=== PATIENT | female | born 1975 | race Caucasian/White ===

== ENCOUNTER 2018-03-25 16:32 | Emergency (ER) | payer MEDICAID, SELFPAY ==
[2018-03-25 16:34] VITALS: BP 164/81; PULSE 85; RESP 17; TEMP 37.6; O2SAT 98; BMI 31.4
[2018-03-25] MEDS: Ketorolac 30 MG/ML Syringe IV (17:04)
[2018-03-25] MEDS: 0.9% Normal Saline 1,000 ML 250 ML IV (17:04)
[2018-03-25 17:49] LABS: Bacteria 0 SEEN /hpf (None Seen); Mucous, Urine 0 SEEN /hpf (<or=2+); White Blood Cells 0 SEEN /hpf (0-5)
[2018-03-25 17:56] LABS: Color, Urine Yellow (Yellow); Glucose, Dipstick Normal (Normal); Ketone-Dipstick Negative (Negative); Leukocyte Esterase-Dipstick 25 /ul (Negative); Nitrite-Dipstick Negative (Negative); Occult Blood-Urine 250 /ul (Negative); Protein-Dipstick 15 mg/dl (Negative); Urine Bilirubin Dipstick Negative (Negative); Urine Clarity Clear (Clear); Urine Urobilinogen Normal (Normal)
[2018-03-25 18:50] LABS: Red Blood Cells-Urine 0-5 SEEN /hpf (0-5); Squamous Epithelial Cells - UA 0-5 SEEN /hpf (5-10)
--- NOTE | 2018-03-25 18:55 | ED.DCSUM_ITS ---
- ER Visit Summary Date of Service: 03/25/18 Chief Complaint: Right flank pain History of Present Illness: The patient is a [address] Swann. She complains of right flank pain that began abruptly yesterday at 11 PM. Sharp pains 1010 at worst 510 currently. Is worsened by nothing relieved by nothing. She denies any nausea, vomiting, or diarrhea. Last bowel was yesterday. She had no melena or hematochezia. No dysuria frequency. She does not know about hematuria because she is currently on her menses. She reports a similar to when she has had kidney stones in the past. No fever or chills per Physical Examination: Vitals: Stable. Afebrile. General: Well-nourished and well-developed. Head: Normocephalic atraumatic. Neck: Supple, no lymphadenopathy. No JVD. Nontender. Cardiovascular: Regular rate and rhythm. No murmurs. Respiratory: No respiratory distress. Clear to auscultation bilaterally. Abdominal: Soft, nontender, nondistended, normal bowel sounds. No guarding, rebound, or peritoneal signs. Back: Mild right CVA tenderness. Extremities: Nontender, no edema. Skin: Normal color, no rash. Neurologic: Alert and oriented ?3. Cranial nerves II through XII are intact. Normal strength and sensation. Psych: Normal affect. Test Results: Urine is negative. CT flank shows no acute disease. Emergency Department Course and Treatment: Patient was treated Toradol IV and is resting comfortably. Treatment Plan: Patient be discharged naproxen. Instructed follow-up her primary care physician in 3-5 days if not improving. Return to the emergency department for any worsening symptoms. Disposition: To home in improved and stable condition. Impression: 1. Right flank pain, uncertain cause. This note was generated with [employer] dictation software. It may contain incorrect words, spelling, and punctuation that were not noted in review of the chart prior to signing ED Disposition - Plan for ED Patient: Disposition: Home or Assisted Living Chief Complaint: Flank Pain Instructions: ED Flank Pain Uncertain Cause Prescriptions: Naproxen [Naprosyn] 500 mg PO BID PRN #20 tablet Referrals: Sonny Peterson MD [Primary Care Provider] - 3-5 Days if not improving
[2018-03-25 19:19] VITALS: BP 160/105; PULSE 79; RESP 18; O2SAT 99
== END 2018-03-25 19:20 | disposition home or self-care (01) ==
PROVIDERS: Emergency Provider Emergency Medicine; Family Provider Family Medicine; PCP Family Medicine
DX: R10.9 Unspecified abdominal pain (principal); I10 Essential (primary) hypertension; R73.03 Prediabetes; Z87.442 Personal history of urinary calculi; Z79.84 Long term (current) use of oral hypoglycemic drugs; Z79.899 Other long term (current) drug therapy
CPT/HCPCS: 74176; 81001; 96374; 99284; J7030; A4216

== ENCOUNTER 2018-12-19 09:01 | Emergency (ER) | payer MEDICAID, SELFPAY ==
[2018-12-19 09:02] VITALS: BP 156/86; PULSE 74; RESP 16; TEMP 36.6; O2SAT 100; BMI 31.4
[2018-12-19 09:08] VITALS: BP 156/86; PULSE 71; RESP 16; TEMP 36.6; O2SAT 100
[2018-12-19] MEDS: Ketorolac 30 MG/ML Syringe IM (09:32)
[2018-12-19 09:35] LABS: Color, Urine Yellow (Yellow); Glucose, Dipstick Normal (Normal); Ketone-Dipstick Negative (Negative); Leukocyte Esterase-Dipstick 500 /ul (Negative); Mucous, Urine 0 SEEN /hpf (<or=2+); Nitrite-Dipstick Negative (Negative); Occult Blood-Urine 150 /ul (Negative); Protein-Dipstick 30 mg/dl (Negative); Specific Gravity, Urine 1.015 (1.002-1.030); Urine Bilirubin Dipstick Negative (Negative); Urine Clarity Sl. Cloudy (Clear); Urine Urobilinogen Normal (Normal)
--- NOTE | 2018-12-19 09:35 | ED.VIS.FEGU ---
History of Present Illness Chief Complaint: Complaint Informant: Patient Onset: Yesterday Quality: Cramping Location: Suprapubic, Back Current Severity: Mild Maximum Severity: Moderate Narrative: Patient presenting secondary to pelvic and back cramping. Patient reports that over the last 2 to 3 days she has been having intermittent issues with pelvic and back cramping. She reports that she has been having urinary urgency and some mild dysuria. She denies any presence of fevers, nausea, vomiting. She denies any vaginal bleeding. Patient has regular menstrual cycles, most recent one was about 2 weeks ago. Patient states that she believes she either has a UTI or a kidney stone. She denies of any unilateral flank pain, but does endorse that she has a mild amount of low back pain associated with this. Review of systems otherwise negative. Past Medical History - Allergies and Home Meds Allergies/Adverse Reactions: Allergies latex Allergy (Verified 12/19/18 09:05) Rash Primary Care Physician: Pedro Corley MD [STAFF PHYSICIAN] - 1 Week Smoking Status: Never smoker Review of Systems All systems negative except as indicated General: Denies: Chills, Fever, Malaise Genitourinary: Reports: Dysuria, - - Urgency Physical Exam Vital Signs/Narrative: Vital Signs Temp Pulse Resp BP Pulse Ox 12/19/18 09:08 97.8 F 71 16 156/86 H 100 12/19/18 09:02 97.8 F 74 16 156/86 H 100 Inital Vital Signs reviewed: Yes General: Well nourished, Well developed Head: Normocephalic, Atraumatic Eyes: Perrl, EOMI ENT: Moist mucous membranes, No rhinorrhea Neck: Supple, Nontender Cardiovascular: Regular rate, Regular rhythm, No murmurs, - - 2+ radial pulses bilaterally symmetric Respiratory: No distress, CTA bilaterally, Chest nontender Abdomen: Soft, Nontender, Nondistended, Normal bowel sounds, - - Patient complains of some right sided flank tenderness to percussion, no evidence of overlying vesicular rash Skin: Normal color, No rash Neurological: Alert, Oriented x3, Cranial nerves II-XII grossly intact, Normal Strength, Normal Sensation Psychological: Normal affect Diagnostic/Tx/Re-eval - Treatment/Re-Evaluation Treatment: Toradol IM - Medical Decision/Diagnostic Studies Patient presented secondary to pelvic cramping and back cramping. Bedside ultrasound was performed and showed some mild hydronephrosis on the left with no evidence of dilation of the renal calyces or ureters on the right. Patient was given a dose of Toradol, urinalysis was sent. Urinalysis ended up showing the patient to have both red cells and white cells. Urine was sent for culture. At this point the patient likely has a kidney stone that she is passing as she has had a history of this in the past. She only has mild hydronephrosis, has normal stable vital signs without any evidence of fever or toxicity. I believe that she is appropriate for outpatient treatment of this at this point. Patient will be sent home with oral Toradol as well as Bactrim for treatment of UTI. She was given strict return instructions which she voiced understanding of in her own words. Patient will be given follow-up with urology. Patient was discharged in improved condition. Disposition: Home ED Disposition - Plan for ED Patient: Disposition: Home or Assisted Living Diagnosis: Ureteral colic, UTI (urinary tract infection) Instructions: ED UTI Cystitis Female, ED Stone Renal W Colic Prescriptions: Smz/Tmp Ds [Bactrim Ds] 1 tab PO BID #14 tab Ketorolac [Toradol] 10 mg PO Q6H #20 tab Referrals: Pedro Corley MD [STAFF PHYSICIAN] - 1 Week
[2018-12-19 09:36] LABS: Internal QC Validated? YES +Cl - CLEAR BKGD; Pregnancy, Urine Negative Negative
[2018-12-19 09:41] LABS: Bacteria 1+ /hpf (None Seen); Red Blood Cells-Urine 10-25 SEEN /hpf (0-5); Squamous Epithelial Cells - UA 0-5 SEEN /hpf (5-10); White Blood Cells 25-50 SEEN /hpf (0-5)
[2018-12-19 10:09] VITALS: BP 153/103; PULSE 72; RESP 16; O2SAT 98
== END 2018-12-19 10:10 | disposition home or self-care (01) ==
PROVIDERS: Emergency Provider Emergency Medicine; Family Provider Family Medicine; PCP Family Medicine
DX: N39.0 Urinary tract infection, site not specified (principal); N23 Unspecified renal colic
CPT/HCPCS: 81001; 81025; 87077; 87086; 87088; 87186; 96372; 99282

== ENCOUNTER → 2019-05-29 | Outpatient (CLI) | payer MEDICAID, SELFPAY ==
--- NOTE | 2019-05-29 10:50 | MRI_ITS ---
STUDY: MRI BRAIN WITH AND WITHOUT CONTRAST (ATTENTION INTERNAL AUDITORY CANALS - I.A.C.'s) REASON FOR EXAM: Female, 44 years old. Left-sided hearing loss and tinnitus TECHNIQUE: Standardized multiplanar fat and water weighted pulse sequences were obtained. IV Dotarem 19 was administered for the contrast portion of the examination. COMPARISON: None. FINDINGS: Normal bilateral temporal bones. Normal bilateral internal auditory canals. There is no demonstrated intracanalicular or cisternal vestibular schwannoma (acoustic neuroma). There is no enhancement of the bilateral VIIth or VIIIth cranial nerves. Normal bilateral cochlea, vestibules and semicircular canals. Normal size of the ventricles and extra-axial spaces for the patient's age. Normal white matter tracts of the supratentorial brain. There is no evidence for recent intracranial ischemia or other cause of cytotoxic edema on diffusion weighted imaging (DWI). Normal bilateral basal ganglia. Normal thalami. Normal flow voids within the major intracranial circulation suggesting patency by spin echo criteria. Normal venous enhancement. There is no enhancing intra-axial or extra-axial abnormality. There is no extra-axial fluid accumulation. Normal sella turcica, pituitary gland, infundibular stalk, optic chiasm and hypothalamus. Normal tectal plate and pineal gland. Normal midbrain, keron and medulla. Normal cerebellum. Normal basal cisterns. No demonstrated orbital abnormality, within the constraints of a routine brain study. Normal visualized paranasal sinuses. Normal calvarium and skull base. Normal visualized soft tissue structures. Normal visualized upper cervical spine. MRI/Brain W/WO Contrast IMPRESSION: Normal unenhanced and enhanced MRI of the bilateral internal auditory canals (I.A.C's). Electronically Signed: Jaylen Gonsalez MD at 16:59 EDT Tel , Service support ,
== END | disposition home or self-care (01) ==
LOC: MRI 10:48
PROVIDERS: Family Provider Family Medicine; PCP Family Medicine; Referring Provider Otolaryngology Otolaryngology/Facial Plastic Surgery; Visit Provider Otolaryngology Otolaryngology/Facial Plastic Surgery
DX: H93.19 Tinnitus, unspecified ear (principal)
CPT/HCPCS: 70553; A9575

== ENCOUNTER → 2019-06-13 | Outpatient (CLI) | payer MEDICAID, SELFPAY ==
--- NOTE | 2019-06-13 11:16 | CT_ITS ---
STUDY: CT TEMPORAL BONES WITHOUT CONTRAST - ATTN: I.A.C. S REASON FOR EXAM: Female, 44 years old. HEARING LOSS LEFT EAR. RADIATION DOSAGE (If Supplied By Facility): CTDIvol = ( 67.58 ) mGy, DLP = ( 620.47 ) mGycm TECHNIQUE: The patient was scanned in a multi detector CT scanner. Transaxial imaging was performed without the administration of intravenous contrast material. Sagittal and coronal images were reconstructed. Individualized dose optimization techniques were used for this CT. COMPARISON: None. FINDINGS: RIGHT TEMPORAL BONE Normal right internal auditory canal. Normal visualized ossicles and tympanic cavity. Normal right cochlea and semicircular canals. Normal vestibular aqueduct. Normal right petrous carotid artery. Normal right jugular fossa. Normal right mastoid air cells. Normal right petrous apex. LEFT TEMPORAL BONE Normal left internal auditory canal. Normal visualized ossicles and tympanic cavity. Normal left cochlea and semicircular canals. Normal vestibular aqueduct. Normal left petrous carotid artery. Normal right jugular fossa. Normal left mastoid air cells. Normal left petrous apex. CT/Orb Sella Post Fossa Ear w/o IMPRESSION: Normal unenhanced CT examination of the bilateral temporal bones (I.A.C.'s). Electronically Signed: Sussy Rich MD at 9:52 EST Tel , Service support ,
== END | disposition home or self-care (01) ==
LOC: CT 11:14
PROVIDERS: Family Provider Family Medicine; PCP Family Medicine; Referring Provider Otolaryngology Otolaryngology/Facial Plastic Surgery; Visit Provider Otolaryngology Otolaryngology/Facial Plastic Surgery
DX: H91.90 Unspecified hearing loss, unspecified ear (principal); H93.19 Tinnitus, unspecified ear
CPT/HCPCS: 70480

== ENCOUNTER 2019-08-27 05:56 | Day surgery (SDC) | payer MEDICAID, SELFPAY ==
--- NOTE | 2019-08-27 06:05 | EKG12_ITS ---
Test Reason : PRE-OP Blood Pressure : / mmHG Vent. Rate : 073 BPM Atrial Rate : 073 BPM P-R Int : 202 ms QRS Dur : 100 ms QT Int : 400 ms P-R-T Axes : 038 -11 044 degrees QTc Int : 440 ms Normal sinus rhythm Normal ECG No previous ECGs available Confirmed by GE OWENS ([id number]), editor book VINNIE YOUNG ([id number]) on 08/29/2019 10:49:10 AM Referred By: Chace Pineda Confirmed By:GE OWENS
[2019-08-27 06:24] VITALS: BP 131/94; PULSE 77; RESP 14; TEMP 36.3; O2SAT 96; BMI 30.5
[2019-08-27] MEDS: Lactated Ringers 1,000 ML 100 ML IV ×2 (06:41→09:30)
[2019-08-27 06:45] LABS: Bedside Glucose 169 mg/dL (70-110)
[2019-08-27 06:52] LABS: Anion Gap 8 (5-15); BUN 27 mg/dL (7-18); BUN/Creat Ratio 27.6 RATIO (10-20); Calcium,Total 8.8 mg/dL (8.5-10.1); Chloride 106 mmol/L (98-107); Creatinine, Serum 0.98 mg/dL (0.55-1.02); EST Glomerular Filtration Rate 66 mL/min (>60); Est Glom Filt Rate - Afr Amer 80 mL/min (>60); Estimated Creatinine Clearance 69.29 ml/min; Glucose 152 mg/dL (74-106); Potassium 3.5 mmol/L (3.5-5.1); Sodium Level 138 mmol/L (136-145)
--- NOTE | 2019-08-27 07:30 | DCINST_ITS ---
You will use the following diet at home:: No restrictions Discharge Activity: Return to Normal Activity Call your doctor if your incision/area has: Increased Pain/ Swelling Additional Dressing/Incision Instructions:: do not get healing cap wet until seen in clinic Allergies/Adverse Reactions: Allergies latex Allergy (Verified 08/27/19 06:18) Rash Medications to take at Discharge Amlodipine [Norvasc] 5 mg PO DAILY 03/25/18 Hydrochlorothiazide [Hctz] 25 mg PO DAILY 03/25/18 Metoprolol Tartrate [Lopressor (Beta Marjorie)] 100 mg PO BID 03/25/18 RX: Lisinopril 40 mg PO DAILY 03/25/18 RX: Metformin HCl 500 mg PO BID 03/25/18 Loratadine [Claritin] 10 mg PO DAILY 08/20/19 Multivitamin [Multivitamins] 1 ea PO DAILY 08/20/19 Primary Care Physician: Sonny Peterson MD [Primary Care Provider] - Test Results: Test results from this visit will be discussed in further detail at your follow- up appointment, if applicable.
--- NOTE | 2019-08-27 07:34 | OP.PCM_ITS ---
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 left mixed hearing loss Post-Operative Diagnosis: 1. left mixed hearing loss Surgery/Procedure Performed:: osseointegrated hearing aid, left ear Type of Anesthesia:: General Description of Procedure: on the day of the procedure, after appropriate informed consent was obtained, the patient was brought to the operating room and placed in supine position on the operating table. she was placed under general anesthesia by the anesthesiologist. the eyes were taped. the table was rotated 90 degrees toward the surgeon. a small area in the left postauricular region was shaved, then the auricle and periauricular region was prepped and draped in sterile fashion. a 22 gauge needle was used to measure skin thikness, which was 4.5mm. to avoid skin overgrowth issues, it was thought best to go with a 8 mm abutment. the ar ea was injected with 1% lidocaine/epinephrine. a 4cm curvillinear incision was made 1cm anterior to the abutment site. an incision was made with a #15 blade and the periosteum was exposed. a weitlaner was used for retraction and a #15 blade was used to make a cruciate incision in the periosteum. once the periosteum was pressed away using the raspatorium, the drill with a 3mm spacer was used at 2000 RPM to drill to 3mm depth. this as simultaneously irrigated with normal saline. this was drilled perpendicular to bone. the drilled hole was explored and no dura was palpated. therefore, the spacer was removed and a 4mm hole was drilled with irrigation. an 8mm abutment with a 4mm implant was rotated into the hole at 40NCm of torque. the fixture stopped based on the drill indicator. it was firmly in placed. the periosteum was reapproximated and the incision was closed with 3-0 vicryl. a 5mm punch biopsy was used to expose the abutment. a sponge and healing cap was placed. the table was rotated 90 degrees toward the anesthesiologist where she was subsequently awoken and transferred to the PACU in stable condition.
[2019-08-27 08:37] VITALS: BP 125/93; BP 131/94; PULSE 73; RESP 16; TEMP 36.3; O2SAT 100
[2019-08-27 08:45] VITALS: BP 118/81; BP 131/94; PULSE 79; RESP 16; O2SAT 96
[2019-08-27 09:00] VITALS: BP 111/74; BP 131/94; PULSE 64; RESP 16; O2SAT 96
[2019-08-27 09:15] VITALS: BP 109/75; BP 131/94; PULSE 66; RESP 18; TEMP 36.3; O2SAT 99
[2019-08-27] MEDS: Acetaminophen/Codeine #3 Tablet 1 TABLET PO (10:39)
[2019-08-27 10:49] VITALS: BP 118/72; BP 131/94; PULSE 66; RESP 16; TEMP 37; O2SAT 100
== END 2019-08-27 11:00 | disposition home or self-care (01) ==
LOC: SDC 05:57 → AC 05:59
PROVIDERS: Family Provider Family Medicine; PCP Family Medicine; Referring Provider Otolaryngology; Visit Provider Otolaryngology
PROC: (CPT 69710; principal; 2019-08-27 07:15)
DX: H90.72 Mixed conductive and sensorineural hearing loss, unilateral, left ear, with unrestricted hearing on the contralateral side (principal); I10 Essential (primary) hypertension; R73.03 Prediabetes; Z79.84 Long term (current) use of oral hypoglycemic drugs; Z79.899 Other long term (current) drug therapy
CPT/HCPCS: 00120; 69714; 36415; 80048; 82962; 93005; J7120; J2405

== ENCOUNTER → 2019-12-19 11:30 | Outpatient (CLI) | payer MEDICAID, SELFPAY | PROVIDERS: PCP Family Medicine; Referring Provider Otolaryngology; Visit Provider Otolaryngology | DX: Z11.59 Encounter for screening for other viral diseases (principal) | CPT/HCPCS: 87635; C9803; G2023; U0004 ==

== ENCOUNTER 2019-12-24 08:16 | Day surgery (SDC) | payer MEDICAID, SELFPAY ==
[2019-12-24 08:51] VITALS: BP 103/60; PULSE 66; RESP 15; TEMP 36.3; O2SAT 99; BMI 28.3
[2019-12-24 08:56] LABS: Bedside Glucose 111 mg/dL (70-110)
[2019-12-24] MEDS: Lactated Ringers 1,000 ML 100 ML IV (09:04)
[2019-12-24 10:18] LABS: Anion Gap 8 (5-15); BUN 36 mg/dL (7-18); BUN/Creat Ratio 21.3 RATIO (10-20); Calcium,Total 8.7 mg/dL (8.5-10.1); Chloride 106 mmol/L (98-107); Creatinine, Serum 1.69 mg/dL (0.55-1.02); EST Glomerular Filtration Rate 35 mL/min (>60); Est Glom Filt Rate - Afr Amer 42 mL/min (>60); Estimated Creatinine Clearance 40.18 ml/min; Glucose 117 mg/dL (74-106); Potassium 3.7 mmol/L (3.5-5.1); Sodium Level 137 mmol/L (136-145)
--- NOTE | 2019-12-24 10:18 | DCINST_ITS ---
You will use the following diet at home:: No restrictions Discharge Activity: May not drive while taking narcotic pain medications. Call your doctor if your incision/area has: Increased Pain/ Swelling Additional Dressing/Incision Instructions:: keep white chickaloon cap dry for 2 weeks. mupirocin to incision twice daily. Allergies/Adverse Reactions: Allergies latex Allergy (Verified 12/24/19 08:44) Rash Medications to take at Discharge Amlodipine [Norvasc] 5 mg PO DAILY 03/25/18 Hydrochlorothiazide [Hctz] 25 mg PO DAILY 03/25/18 Lisinopril 40 mg PO DAILY 03/25/18 Metformin HCl 500 mg PO BID 03/25/18 Metoprolol Tartrate [Lopressor (Beta Marjorie)] 100 mg PO BID 03/25/18 Loratadine [Claritin] 10 mg PO DAILY 08/20/19 Multivitamin [Multivitamins] 1 ea PO DAILY 08/20/19 Sulfamethoxazole/Trimethoprim [Bactrim Ds Tablet] 1 ea PO DAILY 12/20/19 Primary Care Physician: Sonny Peterson MD [Primary Care Provider] - Test Results: Test results from this visit will be discussed in further detail at your follow- up appointment, if applicable. Please Follow Up With: Chace Pineda MD When: 1 week
--- NOTE | 2019-12-24 10:19 | PCM.OPRPT ---
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 she was placed under general endotracheal anesthesia by the anesthesiologist. the LMA was secured, the eyes were taped. the area of the left postauricular implant was shaved and injected with lidocaine/epinephrine; it was prepped and draped in sterile fashion. a 5mm punch biopsy was used to expose the 8mm abutment with 4mm implant. the abutment was unscrewed and gently removed. the implant was firmly in place. given the recent overgrowth history, a 12mm abutment was placed into the well after granulation tissue was debulked. this was sutured into place using the screwdriver to two-finger tightness without overtightening. allevyn and a healing cap were placed. the patient was awoken from anesthesia and transferred to the PACU in stable condition.
[2019-12-24 11:01] VITALS: BP 103/60; BP 93/60; PULSE 72; RESP 16; TEMP 36.2; O2SAT 96
[2019-12-24 11:11] LABS: Bedside Glucose 131 mg/dL (70-110)
[2019-12-24 11:15] VITALS: BP 102/64; BP 103/60; PULSE 73; RESP 16; O2SAT 100
[2019-12-24 11:30] VITALS: BP 102/63; BP 103/60; PULSE 75; RESP 16; O2SAT 100
[2019-12-24 11:44] VITALS: BP 103/60; BP 106/69; PULSE 76; RESP 16; TEMP 36.8; O2SAT 100
[2019-12-24 12:15] VITALS: BP 103/60
== END 2019-12-24 12:49 | disposition home or self-care (01) ==
LOC: SDC 08:18 → AC 08:18
PROVIDERS: PCP Family Medicine; Referring Provider Otolaryngology; Visit Provider Otolaryngology
PROC: (CPT 69710; principal; 2019-12-24 09:55)
DX: H90.72 Mixed conductive and sensorineural hearing loss, unilateral, left ear, with unrestricted hearing on the contralateral side (principal); E11.9 Type 2 diabetes mellitus without complications; I10 Essential (primary) hypertension; Z79.84 Long term (current) use of oral hypoglycemic drugs; Z79.899 Other long term (current) drug therapy
CPT/HCPCS: 69717; 36415; 80048; 82962; J7120; J2405

== ENCOUNTER → 2020-03-25 15:21 | Outpatient (CLI) | payer MEDICAID, SELFPAY | PROVIDERS: PCP Family Medicine; Referring Provider Otolaryngology; Visit Provider Otolaryngology | DX: L03.90 Cellulitis, unspecified (principal) | CPT/HCPCS: 87070; 87075; 87077; 87186; 87205 ==

== ENCOUNTER 2020-07-26 15:37 | Emergency (ER) | payer MEDICAID, SELFPAY ==
[2020-07-26 15:38] VITALS: BP 168/109; PULSE 70; RESP 16; TEMP 36.2; O2SAT 99; BMI 28.2
--- NOTE | 2020-07-26 15:51 | ED.VIS.GEN ---
History of Present Illness Chief Complaint: Complaint Informant: Patient Narrative: 45-year-old female with history of UTIs in the past presenting with urinary frequency. She denies dysuria. She denies flank pain, nausea, vomiting. Patient has not had fever or chills. Patient denies any concern for STDs. Past Medical History - Allergies and Home Meds Allergies/Adverse Reactions: Allergies latex Allergy (Verified 07/26/20 15:37) Rash Primary Care Physician: Snony Peterson MD [Primary Care Provider] - Prior records reviewed: Yes Past Medical History: - - UTIs Surgical History: noncontributory Lives: Spouse/ Significant Other Smoking Status: Never smoker Alcohol: None Drugs: None Review of Systems General: Denies: Chills, Fever, Sweats Eyes: Denies: Visual changes - bilaterally, Diplopia ENT: Denies: Rhinorrhea, Sore throat Cardiovascular: Denies: Chest pain, Palpitations Respiratory: Denies: Dyspnea, Cough, Dyspnea on exertion Gastrointestinal: Denies: Abdominal pain, Nausea, Vomiting, Diarrhea, Melena, Hematochezia Genitourinary: Reports: Frequency. Denies: Dysuria, Hematuria Musculoskeletal: Denies: Back pain, Extremity Pain Skin: Denies: Rash, Wounds Neurological: Denies: Headache, Weakness, Numbness Psych: Reports: -, -. Denies: Depression, Anxiety, Suicidal thoughts, Suicidal ideations Physical Exam Vital Signs/Narrative: Vital Signs Temp Pulse Resp BP Pulse Ox 07/26/20 15:38 97.2 F L 70 16 168/109 H 99 Inital Vital Signs reviewed: Yes General: Well nourished, No Acute Distress Head: Normocephalic, Atraumatic Eyes: Perrl, EOMI ENT: Moist mucous membranes, No rhinorrhea Cardiovascular: Regular rate, Regular rhythm Respiratory: No distress, CTA bilaterally Abdomen: Soft, Nontender, Nondistended Back: Nontender, Normal Inspection. Negative for: CVA tenderness Extremities: Nontender, No edema Skin: Normal color, No rash, Cyanosis Neurological: Alert, Oriented x3, Cranial nerves II-XII grossly intact Psychological: Normal affect, Normal Mood Diagnostic/Tx/Re-eval Laboratory Data 07/26/20 15:45 Urine Color Yellow Urine Clarity Clear Urine pH 8.0 Ur Specific [place] 1.015 Urine Protein Negative Urine Glucose (UA) Normal Urine Ketones Negative Urine Occult Blood Negative Urine Nitrite Negative Urine Bilirubin Negative Urine Urobilinogen Normal Ur Leukocyte Esterase 100 H Urine RBC 0 SEEN Urine WBC 10-25 SEEN Ur Squamous Epith Cells 0-5 SEEN Urine Bacteria 0 SEEN Urine Mucus 0 SEEN - Medical Decision Making Patient presents with urinary frequency and is concerned she has a UTI. She does not have any other findings on her physical exam. She states she feels otherwise well. Patient has 100 leukocyte Estrace and 10-25 white blood cells in her urine. She has no bacteria. After discussion with the patient she wishes to be treated as she is symptomatic and she does not want have to come back to the emergency room. Patient will be given Keflex with the first dose in the ED. She is given return precautions. Patient to be discharged this time. Impression: 1. UTI ED Disposition - Plan for ED Patient: Disposition: Home or Assisted Living Instructions: ED Bladder Infection, Female (Adult) Prescriptions: Cephalexin [Keflex] 500 mg PO Q12 #10 cap Transmission Status: Received by [id number] Referrals: Sonny Peterson MD [Primary Care Provider] -
[2020-07-26 16:02] LABS: Bacteria 0 SEEN /hpf (None Seen); Mucous, Urine 0 SEEN /hpf (<or=2+); Red Blood Cells-Urine 0 SEEN /hpf (0-5)
[2020-07-26 16:07] LABS: Color, Urine Yellow (Yellow); Glucose, Dipstick Normal (Normal); Ketone-Dipstick Negative (Negative); Leukocyte Esterase-Dipstick 100 /ul (Negative); Nitrite-Dipstick Negative (Negative); Occult Blood-Urine Negative /ul (Negative); Protein-Dipstick Negative (Negative); Specific Gravity, Urine 1.015 (1.002-1.030); Urine Bilirubin Dipstick Negative (Negative); Urine Clarity Clear (Clear); Urine Urobilinogen Normal (Normal)
[2020-07-26 16:21] LABS: Squamous Epithelial Cells - UA 0-5 SEEN /hpf (5-10); White Blood Cells 10-25 SEEN /hpf (0-5)
[2020-07-26] MEDS: Cephalexin 250 MG Capsule 500 MG PO (17:01)
[2020-07-26 17:02] VITALS: BP 132/75; PULSE 64; RESP 15; O2SAT 96
== END 2020-07-26 17:02 | disposition home or self-care (01) ==
PROVIDERS: Emergency Provider Student in an Organized Health Care Education/Training Program; PCP Family Medicine
DX: N39.0 Urinary tract infection, site not specified (principal)
CPT/HCPCS: 81001; 87077; 87086; 87088; 87186; 99283

== ENCOUNTER 2021-08-28 13:35 | Emergency (ER) | payer MEDICAID, SELFPAY ==
--- NOTE | 2021-08-28 16:13 | EKG12_ITS ---
Test Reason : SYNOCOPE Blood Pressure : / mmHG Vent. Rate : 070 BPM Atrial Rate : 070 BPM P-R Int : 182 ms QRS Dur : 090 ms QT Int : 390 ms P-R-T Axes : 017 -05 043 degrees QTc Int : 421 ms Normal sinus rhythm Septal infarct , age undetermined Abnormal ECG Confirmed by AUDRA GONZALES, ULISES ([id number]), editorial writer JANICE PANDA ([id number]) on 08/30/2021 10:16:16 AM Referred By: CECILY Confirmed By:ULISES ZHU MD
--- NOTE | 2021-08-28 16:19 | CT_ITS ---
EXAMINATION : Head CT w/out contrast HISTORY : INJURY COMPARISON : None. TECHNIQUE : Multiple contiguous axial images were obtained from the skull base to the vertex without intravenous contrast. A radiation dose optimization technique was used for this scan. FINDINGS : The ventricles and sulci are normal in size. There is no evidence for acute intracranial hemorrhage, mass effect, or midline shift. There is no extra-axial fluid collection. There is normal madrid-white differentiation, without CT evidence of acute ischemia or infarct. The skull base and calvarium are unremarkable. The orbits are unremarkable. The paranasal sinuses are clear. The mastoid air cells are well-aerated. The soft tissues are unremarkable. CT/Brain/Head without Contrast IMPRESSION: No acute intracranial abnormality. Electronically Signed: Aleksey Woodward MD at 16:39 EST ,
--- NOTE | 2021-08-28 19:52 | EDS_ITS ---
DATE OF SERVICE 08/28/21 CHIEF COMPLAINT: Syncope. HISTORY OF PRESENT ILLNESS: This is a 46-year-old female who about 2 days ago had a syncopal episode. She thought she hit her head. She has a history of an implantable device behind her left ear for decreased hearing, and she has more pain in that region. She has no fever or chills. She denies any chest pain or palpitations. She has no lower extremity edema or calf pain. She has no DVT or PE risk factors. She has a slight headache, but no vision changes or neck pain or any other injuries. PHYSICAL EXAMINATION: VITAL SIGNS: Normal. HEENT: Left TM is normal. Left- sided posterior mastoid region shows the implantable device without erythema, calor or sign of infection. LUNGS: Clear. ABDOMEN: Soft and nontender. EXTREMITIES: No edema. No calf pain. NEUROLOGIC: Normal. DIAGNOSTIC DATA: CT head is normal. EKG, CBC, chemistries and troponin all normal. EMERGENCY DEPARTMENT COURSE AND MEDICAL DECISION MAKING: The patient improved with some IV fluids. IMPRESSION: Syncope. Head injury. DISPOSITION/PLAN: She is stable for discharge. She can follow up with ENT.
[2021-08-29 02:17] LABS: AST(SGOT) 19 U/L (15-37); Alanine Aminotransfer ALT/SGPT 25 U/L (13-56); Alkaline Phosphatase 51 U/L (45-117); Anion Gap 8 (5-15); BUN 25 mg/dL (7-18); Calcium,Total 8.6 mg/dL (8.5-10.1); Chloride 105 mmol/L (98-107); Creatinine, Serum 0.89 mg/dL (0.55-1.02); EST Glomerular Filtration Rate 73 mL/min (>60); Est Glom Filt Rate - Afr Amer 88 mL/min (>60); Globulin 3.9 g/dL (2.2-4.2); Glucose 124 mg/dL (74-106); Protein, Total 7.9 g/dL (6.4-8.2); Sodium Level 136 mmol/L (136-145); Troponin-I HS 6 pg/mL (3.0-54.0)
[2021-08-29 08:21] LABS: Absolute Lymphocyte Count 1.27 X10^3/uL (0.83-4.51); Absolute Neutrophil Count 7.8 X10^3/uL (2.0-7.7); Basophil# 0.03 X10^3/uL; Basophil% 0.3 % (0-1); Eosinophil# 0.19 X10^3/uL; Eosinophils% 1.9 % (0-5); Hemoglobin 13.3 g/dL (12.0-15.0); Lymphocyte # 1.27 X10^3/ul (0.83-4.51); Lymphocyte % 12.7 % (19-41); Mean Corp Hgb Conc 33.3 g/dL (32-36); Mean Corpuscular Hgb 27.6 pg (27.0-32.0); Mean Platelet Vol. 9.9 fl (6.2-12.0); Monocyte# 0.67 X10^3/uL; Monocyte% 6.7 % (0-10); NRBC Flagged by Analyzer 0 % (0-5); Neutrophil # 7.79 X10^3/uL (2.7-7.7); Neutrophil % 77.9 % (47-70); Platelet Count 324 K/mm3 (150-450); RBC Distribution Width CV 14.2 % (11.6-14.6); RBC Distribution Width SD 42.4 fl (35.1-43.9); Red Blood Count 4.82 M/mm3 (4.2-5.4)
[2021-08-29 13:20] LABS: Bedside Glucose 112 mg/dL (70-110)
== END 2021-08-28 20:08 | disposition home or self-care (01) ==
LOC: ED 19:00
PROVIDERS: Emergency Provider Emergency Medicine; PCP Family Medicine; Visit Provider Emergency Medicine
DX: R55 Syncope and collapse (principal); S09.90XA Unspecified injury of head, initial encounter; Y93.9 Activity, unspecified; Y99.9 Unspecified external cause status; W19.XXXA Unspecified fall, initial encounter; Y92.9 Unspecified place or not applicable
CPT/HCPCS: 70450; 80053; 82962; 84484; 85025; 93005; 96360; 96361; 99285; J7030; A4216

== ENCOUNTER 2021-09-09 14:08 | Emergency (ER) | payer MEDICAID, SELFPAY ==
[2021-09-09 14:08] VITALS: BP 161/84; PULSE 71; RESP 18; TEMP 36.3; O2SAT 100; BMI 27.6
--- NOTE | 2021-09-09 14:35 | CT_ITS ---
HISTORY: neck pain EXAMINATION: CT Spine Cervical W/O Contrast Injection TECHNIQUE: Helically acquired images were obtained of the cervical spine. 2D reformatted images were reviewed. A radiation dose optimization technique was used for this scan. IV Contrast dosage and agent: None. COMPARISON: None FINDINGS: VERTEBRAE: No fracture or traumatic subluxation. No discrete lytic or blastic abnormality observed. Normal alignment. Normal craniocervical junction and cervicothoracic junction. DISCS and SPINAL CANAL: Disc heights are preserved. No significant stenosis. NECK SOFT TISSUES: No prevertebral soft tissue swelling. LUNG APICES: Clear. CT/Spine Cervical without Contras IMPRESSION: Unremarkable study. Individualized dose optimization techniques were used for this CT. at 1532 Reported and signed by: Jim Pelletier MD Electronically Signed: Jim Pelletier MD at 15:31 EST ,
[2021-09-09] MEDS: Meclizine HCl 25 MG Tablet PO (14:45)
[2021-09-09] MEDS: proMETHazine 25 MG/ML Syringe 12.5 MG IM (14:46)
[2021-09-09] MEDS: Ketorolac 15 MG/ML Vial IM (14:46)
[2021-09-09 15:11] LABS: Bedside Glucose 94 mg/dL (70-110)
--- NOTE | 2021-09-09 15:15 | ED.VIS.BACK ---
HPI History of Present Illness Chief Complaint: Back Narrative Narrative: Patient presenting with left cervical paraspinal musculature tenderness. Patient states she was seen a couple of days ago for an episode of lightheadedness and had a CT of the brain performed. She states she also had blood work done. All of this was normal. She reports that she has had pain in the left side of her neck since then. Today she reports that she was dizzy and states that it was like spinning. She states she laid down when she felt like she was dizzy and then states she felt like she was going to faint so she stood back up. Patient states that the pain in her neck is a 5/10. She reports that she did not get imaging the other day of her neck when she fell. She does not have any paresthesias in the upper extremities or lower extremities. She is able to ambulate. [facility] Medical History Diabetes Hypertension Home Medications amlodipine 5 mg PO DAILY 03/25/18 [History Last Taken 12/24/19 07:00] hydrochlorothiazide 25 mg PO DAILY 03/25/18 [History Last Taken Unknown] lisinopril 20 mg PO DAILY 03/25/18 [History Last Taken 12/24/19 07:00] metformin 500 mg PO BID 03/25/18 [History Last Taken Unknown] metoprolol tartrate 100 mg PO BID 03/25/18 [History Last Taken 12/24/19 07:00] loratadine 10 mg PO DAILY 08/20/19 [History Last Taken Unknown] multivitamin 1 ea PO DAILY 08/20/19 [History Last Taken Unknown] meclizine 25 mg PO TID PRN #30 tab 09/09/21 [Rx Last Taken Unknown] naproxen 500 mg PO BID #30 tab 09/09/21 [Rx Last Taken Unknown] Allergy/AdvReac Type Severity Reaction Status Date / Time latex Allergy Rash Verified 07/26/20 15:37 Social History Smoking Status: Never smoker ROS ROS ED Constitutional Constitutional ED: Denies chills or fever(s) Eyes Eyes: Denies blurry vision or diplopia ENT ENT ED: Reports ear pain left and other Details: Vertiginous dizziness ; Denies rhinorrhea or sore throat Cardiovascular Cardiovascular: Denies chest pain or palpitations Respiratory/Chest Respiratory/Chest: Denies dyspnea or sputum Gastrointestinal Gastrointestinal: Reports nausea; Denies abdominal pain or vomiting Genitourinary Genitourinary ED: Denies dysuria Musculoskeletal Musculoskeletal: Reports neck pain; Denies arthralgias or myalgias Integumentary Denies rash Neurologic Neurologic: Denies headache(s), paresthesias or weakness EXAM Physical Exam Const Vital Signs: 09/09/21 14:08 09/09/21 15:53 09/09/21 17:10 Temperature 97.4 F L 97.8 F Temperature Source Temporal Temporal Pulse Rate 71 66 Respiratory Rate 18 16 17 Blood Pressure 161/84 H 119/74 Blood Pressure Mean 109 89 Pulse Ox 100 98 Oxygen Delivery Method Room Air Room Air Positive well nourished General Appearance ED: NAD; Negative for pallor HEENT Reports moist mucous membranes Negative for trauma Eyes PERRL and EOMs intact bilaterally General Eye ED: Yes other Other Details: Nystagmus and vertigo with modified Keny-Hallpike Neck no lymphadenopathy and supple Neck Narrative: Tenderness palpation left cervical paraspinal news video editor. No midline spinal deformity or step-off. Patient has full range of motion in flexion extension. No difficulty or limitation of head movement from side to side. Resp normal respiratory effort and clear to auscultation bilaterally Cardio regular rate and regular rhythm Neuro oriented x3 and no sensory deficits noted Sensorium / Orientation: alert Motor Exam: strength 5/5 throughout Psych mental status grossly normal Skin General Skin Exam: Negative for jaundice or pallor MDM MDM MDM Narrative Medical decision making narrative: Patient given 25 mg of meclizine p.o. and Phenergan IM. I did review her previous visit and she did not have imaging of her neck when she fell. I did obtain CT of the cervical spine and this is negative for acute fracture or other acute abnormality. On reevaluation the patient's vertiginous dizziness is improved. She will be given a prescription for meclizine and Naprosyn for home. Patient is discharged home in stable condition. Impression: 1 benign positional vertigo 2. Cervical strain Lab Data Labs: Laboratory Results - last 24 hr 09/09/21 15:03 POC Glucose 94 Radiography Diagnostic Testing: Clinical Impression(s) from Imaging Studies Cervical Spine CT 09/09/21 14:35 IMPRESSION: Unremarkable study. Individualized dose optimization techniques were used for this CT. at 1532 Reported and signed by: Jim Pelletier MD Electronically Signed: Jim Pelletier MD at 15:31 EST Reading Location ID and State: [facility] / [place] Tel , Service support , Discharge Plan Triage Chief Complaint: Back ED Provider: Carlos Hale Dx/Rx/DC Orders Instructions: ED BPV Vertigo, ED Neck Sprain or Strain Prescriptions: New meclizine 25 mg tablet 25 mg PO TID PRN (Reason: dizziness) Qty: 30 RF: 0 naproxen 500 mg tablet 500 mg PO BID Qty: 30 RF: 0 No Action metformin 500 MG tablet 500 mg PO BID RF: 0 metoprolol tartrate 100 MG tablet 100 mg PO BID RF: 0 lisinopril 20 MG tablet 20 mg PO DAILY RF: 0 amlodipine 2.5 MG tablet 5 mg PO DAILY RF: 0 hydrochlorothiazide 25 MG tablet 25 mg PO DAILY RF: 0 multivitamin 1 EACH tablet 1 ea PO DAILY RF: 0 loratadine 10 MG capsule 10 mg PO DAILY RF: 0 Primary Care Provider: Sonny Peterson Referrals: Sonny Peterson MD [Primary Care Provider] - Disposition Disposition: Home, Self Care Discharge Date/Time: 09/09/21 17:11
[2021-09-09 15:53] VITALS: BP 119/74; PULSE 66; RESP 16; TEMP 36.6; O2SAT 98
[2021-09-09 17:10] VITALS: RESP 17
== END 2021-09-09 17:11 | disposition home or self-care (01) ==
PROVIDERS: Emergency Provider Student in an Organized Health Care Education/Training Program; PCP Family Medicine; Visit Provider Student in an Organized Health Care Education/Training Program
DX: H81.10 Benign paroxysmal vertigo, unspecified ear (principal); E11.9 Type 2 diabetes mellitus without complications; S16.1XXA Strain of muscle, fascia and tendon at neck level, initial encounter; I10 Essential (primary) hypertension; X58.XXXA Exposure to other specified factors, initial encounter; Y93.9 Activity, unspecified; Y99.9 Unspecified external cause status; Y92.9 Unspecified place or not applicable; Z79.84 Long term (current) use of oral hypoglycemic drugs; Z79.899 Other long term (current) drug therapy
CPT/HCPCS: 72125; 82962; 96372; 99282

== ENCOUNTER 2021-12-13 08:38 | Emergency (ER) | payer MEDICAID, SELFPAY ==
[2021-12-13 08:39] VITALS: BP 178/116; PULSE 124; RESP 20; TEMP 37.2; O2SAT 99; BMI 26.0
--- NOTE | 2021-12-13 09:11 | EKG12_ITS ---
Test Reason : [facility] Blood Pressure : / mmHG Vent. Rate : 103 BPM Atrial Rate : 103 BPM P-R Int : 162 ms QRS Dur : 098 ms QT Int : 348 ms P-R-T Axes : 075 002 078 degrees QTc Int : 455 ms Sinus tachycardia Otherwise normal ECG Confirmed by JUANITA GONZALES, JENAE ([id number]), video news editor JANICE PANDA ([id number]) on 12/15/2021 10:30:31 AM Referred By: Confirmed By:JENAE GRANT MD
[2021-12-13 09:38] LABS: Absolute Lymphocyte Count 1.26 X10^3/uL (0.83-4.51); Absolute Neutrophil Count 8.7 X10^3/uL (2.0-7.7); Basophil# 0.02 X10^3/uL; Basophil% 0.2 % (0-1); Eosinophils% 0.9 % (0-5); Hematocrit 40.4 % (37-47); Hemoglobin 13.5 g/dL (12.0-15.0); Lymphocyte # 1.26 X10^3/ul (0.83-4.51); Lymphocyte % 11.8 % (19-41); Mean Corp Hgb Conc 33.4 g/dL (32-36); Mean Corpuscular Hgb 27.4 pg (27.0-32.0); Mean Corpuscular Volume 82.1 fL (81-99); Mean Platelet Vol. 9.7 fl (6.2-12.0); Monocyte# 0.53 X10^3/uL; NRBC Flagged by Analyzer 0 % (0-5); Neutrophil # 8.72 X10^3/uL (2.7-7.7); Neutrophil % 81.6 % (47-70); Platelet Count 327 K/mm3 (150-450); RBC Distribution Width CV 13.4 % (11.6-14.6); RBC Distribution Width SD 39.8 fl (35.1-43.9); Red Blood Count 4.92 M/mm3 (4.2-5.4); White Blood Count 10.7 K/mm3 (4.4-11.0)
[2021-12-13 09:51] LABS: Anion Gap 15 (5-15); BUN 28 mg/dL (7-18); BUN/Creat Ratio 26.4 RATIO (10-20); Calcium,Total 9.3 mg/dL (8.5-10.1); Chloride 100 mmol/L (98-107); Creatinine, Serum 1.06 mg/dL (0.55-1.02); EST Glomerular Filtration Rate 59 mL/min (>60); Est Glom Filt Rate - Afr Amer 72 mL/min (>60); Estimated Creatinine Clearance 62.74 ml/min; Glucose 169 mg/dL (74-106); Potassium 3.3 mmol/L (3.5-5.1); Sodium Level 137 mmol/L (136-145)
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
--- NOTE | 2021-12-13 10:05 | EX.ED.VIS.PS ---
HPI HPI - Psych History of Present Illness Chief Complaint: Suicidal Detail of Chief Complaint: Told her this morning that she was going to kill herself Informant: patient Onset/Context/Timing Onset: Hours Context: Sudden Onset Conflict: Family and Financial Timing: - (Unable to determine. Please read narrative) Current Severity: Moderate Maximum Severity: Severe Worsened by: Situational factors and Alcohol intoxication Relieved by: Nothing Associated Symptoms Associated Symptoms - Psych: Positive for Depressed, Suicidal Thoughts and Easily distracted; Negative for Flight of Ideas, Increased activity, Pressured Speech, Agitated, Hostile, Threatening, Confusion, Paranoia, Visual Hallucinations and Auditory Hallucinations Specific plan (suicidal thought): None per patient Narrative Narrative: Patient is a 46-year-old woman with history of hypertension diabetes who presents after telling her this morning that she was going to off herself . She states problems arose when his mother moved in. She was told to take care of him and be paid for this. She is presently not employed. Patient was crying during the entire history and physical. Difficult to understand what she was saying. She states that she is never attempted to harm her self before. She is on no antidepressants. She has 4 children. She has a 26-year-old, 21-year-old who she claims is her soldier, 19-year-old and a 9-year-old. Per police commissioner there was a loaded gun on the bed. Prior similar symptoms: No Recent Illness/Hospitalization: No [facility] Medical History Diabetes Hypertension Home Medications amlodipine 5 mg PO DAILY 03/25/18 [History Last Taken 12/24/19 07:00] hydrochlorothiazide 25 mg PO DAILY 03/25/18 [History Last Taken Unknown] lisinopril 20 mg PO DAILY 03/25/18 [History Last Taken 12/24/19 07:00] metformin 500 mg PO BID 03/25/18 [History Last Taken Unknown] metoprolol tartrate 100 mg PO BID 03/25/18 [History Last Taken 12/24/19 07:00] loratadine 10 mg PO DAILY 08/20/19 [History Last Taken Unknown] multivitamin 1 ea PO DAILY 08/20/19 [History Last Taken Unknown] meclizine 25 mg PO TID PRN #30 tab 09/09/21 [Rx Last Taken Unknown] naproxen 500 mg PO BID #30 tab 09/09/21 [Rx Last Taken Unknown] Allergy/AdvReac Type Severity Reaction Status Date / Time latex Allergy Rash Verified 12/13/21 08:38 Social History (Updated 12/13/21 @ 10:[address] Suleiman Dc MD) household members: spouse and children Smoking Status: Never smoker substance use type: does not use ROS ROS ED Constitutional Constitutional ED: Denies chills, fever(s), subjective or sweats Eyes Eyes: Denies blurry vision, change in vision or diplopia ENT ENT ED: Denies ear pain, rhinorrhea or sore throat Cardiovascular Cardiovascular: Denies chest pain, palpitations or racing heartbeat Respiratory/Chest Respiratory/Chest: Denies cough, dyspnea or dyspnea on exertion Gastrointestinal Gastrointestinal: Denies abdominal pain, diarrhea, nausea or vomiting Genitourinary Genitourinary ED: Denies dysuria, hematuria or urinary frequency Musculoskeletal Musculoskeletal: Denies arthralgias, myalgias or neck pain Neurologic Neurologic: Denies headache(s), paresthesias or weakness Psychiatric Psychiatric: Reports depression and suicidal thoughts Endocrine Endocrinology: Denies polydipsia, polyphagia or polyuria Hematologic/Lymphatic Hematologic/Lymphatic: Denies easy bleeding or easy bruising Allergic/Immunologic Allergic/Immunologic ED: Denies mouth swelling, tongue swelling or urticaria EXAM Physical Exam Const Vital Signs: 12/13/21 08:39 Temperature 99.0 F Temperature Source Temporal Pulse Rate 124 H Respiratory Rate 20 H Blood Pressure 178/116 H Blood Pressure Mean 136 Pulse Ox 99 Oxygen Delivery Method Room Air Positive well nourished and well developed General Appearance ED: well developed and other Emotional lability with crying sobbing ; Negative for NAD or pallor HEENT normocephalic and atraumatic Eyes PERRL and EOMs intact bilaterally General Eye ED: Negative for pale conjunctiva or scleral icterus Neck no lymphadenopathy and supple Resp normal respiratory effort and clear to auscultation bilaterally Cardio S1 normal heart sound, S2 normal heart sound and no murmurs Rate: tachycardic Rhythm: regular rhythm GI non-tender, non-distended and no masses Auscultation: normoactive bowel sounds Palpation: soft Back/Spine no CVA tenderness Cervical Spine: Negative for cervical spine tenderness Thoracic Spine / Upper Back: Negative for thoracic spinal tenderness Lumbar Spine / Lower Back: Negative for lumbar spinal tenderness Extremity normal to inspection General Extremety ED: Negative for edema or tenderness General Extremity: Negative for edema Neuro CN's II-XII intact bilaterally, no sensory deficits noted and deep tendon reflexes 2+ bilaterally Sensorium / Orientation: alert Motor Exam: strength 5/5 throughout Psych denies hallucinations, denies homicidal ideation and denies suicidal ideation Psych Narrative: Patient denies suicidal ideation and states she would never off herself . However per law enforcement there was a loaded gun on the bed when she told her that she was going to off herself . Appearance: grossly normal Attitude: guarded Activity / Motor Behavior: avoids eye contact Speech: loud and slurred Mood & Affect: depressed, tearful and labile affect Thought Process: normal thought process Thought Content: No suicidality, No homicidality, No phobia(s), No hallucination(s), No ideas of reference, No rumination(s) and No compulsion(s) Attention / Concentration: attention grossly intact Memory / Cognition: memory grossly intact Insight: other Difficult to assess since patient has not forthcoming with information or truthful Skin General Skin Exam: Negative for jaundice or pallor Lesions: no lesions Rashes: no rashes MDM MDM MDM Narrative Medical decision making narrative: Concern patient does have intent to harm her self. After being made aware that there was a loaded gun by law enforcement patient will be pink slipped for transfer to psychiatric facility. Patient was accepted at [facility]. Transfer sheet has been completed. Lab Data Attestation: I reviewed the patient's lab results. Labs: Laboratory Results - last 24 hr 12/13/21 12/13/21 12/13/21 09:20 09:20 09:20 WBC 10.7 RBC 4.92 Hgb 13.5 Hct 40.4 MCV 82.1 MCH 27.4 MCHC 33.4 RDW Std Deviation 39.8 RDW Coeff of Felix 13.4 Plt Count 327 MPV 9.7 Immature Gran % (Auto) 0.500 Neut % (Auto) 81.6 H Lymph % (Auto) 11.8 L [place] % (Auto) 5.0 Eos % (Auto) 0.9 Baso % (Auto) 0.2 Absolute Neuts (auto) 8.7 H Absolute Lymphs (auto) 1.26 Nucleated RBC % 0 Sodium 137 Potassium 3.3 L Chloride 100 Carbon Dioxide 22.0 Anion Gap 15 BUN 28 H Creatinine 1.06 H Estim Creat Clear Calc 62.74 Est GFR (MDRD) Af Amer 72 Est GFR (MDRD) Non-Af 59 L BUN/Creatinine Ratio 26.4 H Glucose 169 H Calcium 9.3 Serum , Qual Urine Color Urine Clarity Urine pH Ur Specific [place] Urine Protein Urine Glucose (UA) Urine Ketones Urine Occult Blood Urine Nitrite Urine Bilirubin Urine Urobilinogen Ur Leukocyte Esterase Urine RBC Urine WBC Ur Squamous Epith Cells Urine Bacteria Urine Mucus Urine Opiates Screen Urine Methadone Screen Ur Barbiturates Screen Ur Phencyclidine Scrn Ur Amphetamines Screen MDMA (Ecstasy) Screen U Benzodiazepines Scrn Urine Cocaine Screen U Cannabinoids Screen Ur Drug Screen Comment Ethyl Alcohol 5.0 12/13/21 12/13/21 12/13/21 09:20 10:10 10:10 WBC RBC Hgb Hct MCV MCH MCHC RDW Std Deviation RDW Coeff of Felix Plt Count MPV Immature Gran % (Auto) Neut % (Auto) Lymph % (Auto) [place] % (Auto) Eos % (Auto) Baso % (Auto) Absolute Neuts (auto) Absolute Lymphs (auto) Nucleated RBC % Sodium Potassium Chloride Carbon Dioxide Anion Gap BUN Creatinine Estim Creat Clear Calc Est GFR (MDRD) Af Amer Est GFR (MDRD) Non-Af BUN/Creatinine Ratio Glucose Calcium Serum , Qual NEGATIVE Urine Color Yellow Urine Clarity Clear Urine pH 6.0 Ur Specific [place] 1.015 Urine Protein 15 H Urine Glucose (UA) Normal Urine Ketones 150 A* Urine Occult Blood 25 H Urine Nitrite Negative Urine Bilirubin Negative Urine Urobilinogen Normal Ur Leukocyte Esterase 25 H Urine RBC 0-5 SEEN Urine WBC 0-5 SEEN Ur Squamous Epith Cells 0-5 SEEN Urine Bacteria RARE Urine Mucus 1+ Urine Opiates Screen NEGATIVE Urine Methadone Screen NEGATIVE Ur Barbiturates Screen NEGATIVE Ur Phencyclidine Scrn NEGATIVE Ur Amphetamines Screen NEGATIVE MDMA (Ecstasy) Screen NEGATIVE U Benzodiazepines Scrn NEGATIVE Urine Cocaine Screen NEGATIVE U Cannabinoids Screen NEGATIVE Ur Drug Screen Comment Ethyl Alcohol Urine is remarkable for ketones which is insignificant. EKG Initial EKG: Attestation: I personally reviewed and interpreted this EKG as follows: Interpretation: Sinus Tachycardia (Sinus tach of 103, otherwise normal. [place] 160 ms. Cures duration 98 ms. QT duration 3 and 48 ms. [place] is normal) Discharge Plan Triage Chief Complaint: Suicidal ED Provider: Suleiman Dc Dx/Rx/DC Orders Clinical Impression: Moderately severe depression, Suicidal ideation, Acute hyperglycemia Prescriptions: No Action metformin 500 MG tablet 500 mg PO BID RF: 0 metoprolol tartrate 100 MG tablet 100 mg PO BID RF: 0 lisinopril 20 MG tablet 20 mg PO DAILY RF: 0 amlodipine 2.5 MG tablet 5 mg PO DAILY RF: 0 hydrochlorothiazide 25 MG tablet 25 mg PO DAILY RF: 0 multivitamin 1 EACH tablet 1 ea PO DAILY RF: 0 loratadine 10 MG capsule 10 mg PO DAILY RF: 0 meclizine 25 mg tablet 25 mg PO TID PRN (Reason: dizziness) Qty: 30 RF: 0 naproxen 500 mg tablet 500 mg PO BID Qty: 30 RF: 0 Primary Care Provider: Sonny Peterson Referrals: Sonny Peterson MD [Primary Care Provider] - Disposition Disposition: Psychiatric Hospital or Unit Discharge Location: [facility]
--- NOTE | 2021-12-13 10:06 | ED.RN ---
PT ON PHONE BECOMING VERY UPSET. PT NOT COOPERATIVE WHEN ASKED TO GET OFF PHONE. PT THEN DOES HANG UP. PT MAKING PLANS TO HAVE SON COME PICK HER UP. PT AWARE THAT SHE WILL NOT BE DISCHARGED AT THIS TIME. PT AWARE SHE HAS A PINK SLIP AND WHAT THAT MEANS
[2021-12-13 10:19] LABS: Pregnancy, Serum, hCG Quali. NEGATIVE Negative (0-9 Nonpreg)
[2021-12-13 10:31] LABS: Color, Urine Yellow (Yellow); Glucose, Dipstick Normal (Normal); Leukocyte Esterase-Dipstick 25 /ul (Negative); Nitrite-Dipstick Negative (Negative); Occult Blood-Urine 25 /ul (Negative); Protein-Dipstick 15 mg/dl (Negative); Specific Gravity, Urine 1.015 (1.002-1.030); Urine Bilirubin Dipstick Negative (Negative); Urine Clarity Clear (Clear); Urine Urobilinogen Normal (Normal)
[2021-12-13 10:34] LABS: Ketone-Dipstick 150 mg/dl (Negative)
--- NOTE | 2021-12-13 10:36 | ED.RN ---
LAB CALLED URINE KETONES 150
[2021-12-13 10:46] LABS: Bacteria RARE /hpf (None Seen); Mucous, Urine 1+ /hpf (<or=2+); Red Blood Cells-Urine 0-5 SEEN /hpf (0-5); Squamous Epithelial Cells - UA 0-5 SEEN /hpf (5-10); White Blood Cells 0-5 SEEN /hpf (0-5)
[2021-12-13 11:03] LABS: Amphetamine Urine VISTA NEGATIVE (<1000 ng/mL); Barbiturate Urine VISTA NEGATIVE (< 200 ng/mL); Benzodiazepine Urine VISTA NEGATIVE (< 200 ng/mL); Cocaine Urine VISTA NEGATIVE (< 300 ng/mL); Ecstacy Urine VISTA NEGATIVE (< 500 ng/mL); Methadone Urine VISTA NEGATIVE (< 300 ng/mL); PCP Urine VISTA NEGATIVE (< 25 ng/mL); THC Urine VISTA NEGATIVE (< 50 ng/mL)
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
[2021-12-13 11:38] LABS: Vista UDS pH Range 5
[2021-12-13 12:00] LABS: Internal QC Validated? YES +Cl - CLEAR BKGD
--- NOTE | 2021-12-13 12:43 | CASEMGMT ---
Addendum entered by Dot Garay 12/13/21 12:46: Accepting Physician is Dr. Whalen. Pt is going to [address] [facility]. RN to RN number [phone]. Kiara with [facility] arranged transportation for 5:00pm. Devika, Fashion Intern, will attempt to arrange transportation for earlier. Original Note: Social Work Note Pt has been [facility] to [facility]. Physician updated. Pt updated. Startex Slip faxed to [facility]. Plan: [facility]. Dot Garay INDUSTRIAL ELECTRICIAN JOURNEYMAN, LINECASTING MACHINE KEYBOARD OPERATOR
--- NOTE | 2021-12-13 12:56 | NURSING ---
CALLED [facility], ETA IS 45 MIN
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
[2021-12-13 13:13] VITALS: BP 168/84; PULSE 114; RESP 16; O2SAT 99
--- NOTE | 2022-02-18 11:07 | CM.ED ---
SW Note SW received letter from [facility]. Letter advised case closed. Brenda SOLER
== END 2021-12-13 14:11 ==
PROVIDERS: Emergency Provider Emergency Medicine; PCP Family Medicine; Visit Provider Emergency Medicine
DX: F32.2 Major depressive disorder, single episode, severe without psychotic features (principal); F10.129 Alcohol abuse with intoxication, unspecified; E11.65 Type 2 diabetes mellitus with hyperglycemia; R45.851 Suicidal ideations; I10 Essential (primary) hypertension; Z79.899 Other long term (current) drug therapy; R00.0 Tachycardia, unspecified
CPT/HCPCS: 80048; 80307; 81001; 82077; 84703; 85025; 87811; 93005; 99285

== ENCOUNTER → 2023-09-14 | Outpatient (CLI) | payer MEDICAID, SELFPAY ==
[2023-09-14 12:11] LABS: Mucous, Urine 0 SEEN /hpf (<or=2+); Red Blood Cells-Urine 0 SEEN /hpf (0-5)
[2023-09-14 12:30] LABS: Color, Urine Yellow (Yellow); Glucose, Dipstick 1000 mg/dl (Normal); Ketone-Dipstick 5 mg/dl (Negative); Leukocyte Esterase-Dipstick 100 /ul (Negative); Nitrite-Dipstick Negative (Negative); Occult Blood-Urine 25 /ul (Negative); Protein-Dipstick 15 mg/dl (Negative); Urine Bilirubin Dipstick Negative (Negative); Urine Clarity Clear (Clear); Urine Urobilinogen Normal (Normal)
[2023-09-14 12:50] LABS: Bacteria 1+ /hpf (None Seen); Squamous Epithelial Cells - UA 0-5 SEEN /hpf (5-10); White Blood Cells 10-25 SEEN /hpf (0-5)
--- OUTSIDE RECORDS SUMMARY | 2023-09-14 18:11 | XMS RPT_ITS | CCD ---
Author Name Unknown Address [address] [place] [address] Organization [facility] Care Team Providers Care Experience Designer Name Role Phone Hailey Crawford MD Primary Care Provider [phone] HAILEY CRAWFORD Primary Care Unavailable JIL SAEZ Attending Unavailable HAILEY CRAWFORD Primary Care Unavailable HAILEY CRAWFORD Referring Unavailable SABRINA DEMARCO Referring Unavailable HAILEY CRAWFORD Attending Unavailable HAILEY CRAWFORD Primary Care Unavailable GEORGINA ALVAREZ Attending Unavaila ble HAILEY CRAWFORD Primary Care Unavailable YAHIR DOMINGO Attending Unavailable HAILEY CRAWFORD Primary Care Unavailable HAILEY CRAWFORD Primary Care Unavailable ANA DYER Attending Unavailable Hailey Crawford MD Primary Care Provider Allergies Allergy Classification Reported Allergen(s) Allergy Type Date of Onset Reaction(s) Facility (12 sources) Adhesive Tape; Translations: [ADHESIVE TAPE (ROSINS)] Allergy to substance 6 [facility] Work Phone: (12 sources) Latex; Translations: [LATEX] Drug Allergy 8 [facility] Work Phone: (10 sources) apricots [Other] Propensity to adverse reactions 6 Unknown [facility] Work Phone: (2 sources) OTHER; Translations: [OTHER] Propensity to adverse reactions (disorder) 6 [facility] Medications Current Medications Medication Drug Class(es) Dates Sig (Normalized) Sig (Original) perflutren lipid microspheres 1.3 mL in NaCl (PF) 0.9% 10 mL injection (DEFINITY) (7 sources) Start: 09-14-2021 End: 12-15-2022 perflutren lipid microspheres 1.3 mL in NaCl (PF) 0.9% 10 mL injection (DEFINITY) 125 ml sodium chloride 9 mg/ml prefilled syringe (7 sources) Start: 09-14-2021 End: 12-15-2022 sodium chloride 0.9 % (flush) 10 mL (BD POSIFLUSH) Completed/Discontinued Medications Medication Drug Class(es) Dates Sig (Normalized) Sig (Original) amLODIPine 5 mg oral tablet (12 sources) Dihydropyridine Calcium Channel Marjorie Start: 04-08-2023 take 1 tablet by mouth once daily amLODIPine (NORVASC) 5 mg tablet Indications: Essential hypertension, benign Take 1 tablet by mouth once daily. 30 tablet 5 04/08/2023 Active Problems Active Problems Problem Classification Problem Date Documented Da te Episodic/Chronic Asthma (14 sources) Allergic asthma; Translations: [Unspecified asthma, uncomplicated] Onset: 06-10-2021 07-01-2021 Chronic Diabetes mellitus without complication (14 sources) Type 2 diabetes mellitus without complication; Translations: [Type 2 diabetes mellitus without complications] Onset: 12-14-2020 07-01-2021 Chronic Disorders of lipid metabolism (20 sources) Hypertriglyceride itzel; Translations: [Pure hyperglyceridemia ] Onset: 10-12-2017 04-04-2018 Chronic Essential hypertension (15 sources) Benign essential hypertension; Translations: [Essential (primary) hypertension] Onset: 11-19-2008 10-21-2016 Chronic Occlusion or stenosis of precerebral arteries (10 sources) Left carotid artery stenosis; Translations: [Occlusion and stenosis of left carotid artery] Onset: 09-21-2021 09-21-2021 Chronic Other ear and sense organ disorders (10 sources) Hearing loss in left ear; Translations: [Unspecified hearing loss, left ear] Onset: 12-03-2020 07-01-2021 Chronic Other screening for suspected conditions (not mental disorders or infectious disease) (3 sources) Patient encounter status; Translations: [Encounter for screening mammogram for malignant neoplasm of breast] Episodic Past or Other Problems Problem Classification Problem Date Documented Da te Episodic/Chronic Diabetes or abnormal glucose tolerance complicating ; childbirth; or the puerperium (10 sources) History of gestational diabetes mellitus; Translations: [Personal history of gestational diabetes] Onset: 10-21-2016 10-21-2016 Episodic Genitourinary symptoms and ill-defined conditions (1 source) Hematuria, unspecified; Translations: [Urinary tract infection with hematuria, site unspecified] Onset: 05-15-2022 Episodic Urinary tract infections (2 sources) Acute cystitis without hematuria; Translations: [Urinary tract infection, site not specified] Onset: 05-15-2022 Episodic Results Test Name Value Interpretation Reference Range Facil ity Vital Signs Date Time Vital Sign Value Performing Clinician Faci lity 04-20-2023 16:50-0400 Body weight 83.01 kg Jil Saez APRN.DIGITAL SALES MANAGER Work Phone: [facility] 04-20-2023 16:50-0400 Diastolic blood pressure 80 mm[Hg] Jil Saez APRN.DIGITAL SALES MANAGER Work Phone: [facility] 04-20-2023 16:50-0400 Heart rate 84 /min Jil Saez APRN.DIGITAL SALES MANAGER Work Phone: [facility] 04-20-2023 16:50-0400 Respiratory rate 14 /min Jil Saez APRN.DIGITAL SALES MANAGER Work Phone: [facility] 04-20-2023 16:50-0400 Systolic blood pressure 130 mm[Hg] Jil Saez SANITATION LEAD.DIGITAL SALES MANAGER Work Phone: [facility] 10-14-2022 15:04-0400 Body weight 81.19 kg Hailey Crawford MD Work Phone: [facility] 10-14-2022 15:04-0400 Diastolic blood pressure 74 mm[Hg] Hailey Crawford MD Work Phone: [facility] 10-14-2022 15:04-0400 Heart rate 80 /min Hailey Crawford MD Work Phone: [facility] 10-14-2022 15:04-0400 Respiratory rate 16 /min Hailey Crawford MD Work Phone: [facility] 10-14-2022 15:04-0400 Systolic blood pressure 130 mm[Hg] Hailey Crawford MD Work Phone: [facility] 12-28-2021 12:35-0400 Body temperature 99.39 [degF] Sabrina Demarco PA-C Work Phone: [facility] 12-28-2021 12:35-0400 Body weight 75.3 kg Sabrina Demarco PA-C Work Phone: [facility] 12-28-2021 12:35-0400 Diastolic blood pressure 74 mm[Hg] Sabrina Demarco PA-C Work Phone: [facility] 12-28-2021 12:35-0400 Heart rate 68 /min Sabrina Demarco PA-C Work Phone: [facility] 12-28-2021 12:35-0400 Respiratory rate 18 /min Sabrina Demarco PA-C Work Phone: [facility] 12-28-2021 12:35-0400 Systolic blood pressure 124 mm[Hg] Sabrina Demarco PA-C Work Phone: [facility] Encounters Encounter Date Encounter Type Care Provider Facility Start: 06-17-2023 Refill Hailey henderson MD Work Phone: [facility] Procedures Date Procedure Procedure Detail Performing Clinician Start: 12-28-2021 Adult depression scr eening assessment Sabrinamary ellen Demarco PA-C Work Phone: Start: 12-03-2020 Adult depression scr eening assessment Hailey Crawford MD Work Phone: Start: 01-13-2017 Mammography Hailey guillory MD Work Phone: Plan of Treatment Date Care Activity Detail Author Start: 01-21-2025 Urine microalbumin profile [facility] Start: 04-20-2024 Annual PCP Team Mini Lab Operator soraya Disease Visit Annual PCP Team Chronic Disease Visit [facility] Start: 10-15-2023 ANNUAL PCP TEAM INTERIOR DESIGN PROGRAM CHAIR SORAYA DISEASE VISIT ANNUAL PCP TEAM CHRONIC DISEASE VISIT [facility] Start: 10-15-2023 COVID-19 VACCINE (#1) COVID-19 VACCI NE (#1) [facility] Immunizations Immunization Date Immunization Notes Care Provider Fa cility 04-17-2019 influenza, seasonal, injectable Hailey Crawford MD Work Phone: [facility] 04-17-2019 influenza virus vaccine, unspecified formulation Jil Saez APRN.DIGITAL SALES MANAGER Work Phone: [facility] 07-01-2016 influenza, injectabl e, quadrivalent, contains preservative Hailey Crawford MD Work Phone: [facility] Work Phone: 01-21-2015 tetanus toxoid, redu lizbet diphtheria toxoid, and acellular pertussis vaccine, adsorbed Hailey Crawford MD Work Phone: [facility] Work Phone: 06-05-2010 influenza virus vaccine, unspecified formulation Hailey Crawford MD Work Phone: [facility] Work Phone: 04-25-2009 influenza virus vaccine, unspecified formulation Hailey Crawford MD Work Phone: [facility] Work Phone: 06-06-2008 influenza virus vaccine, unspecified formulation Hailey Crawford MD Work Phone: [facility] Work Phone: Payers Date Payer Category Payer Medicaid [facility] MEDIC AID [employer] [id number] 2022-Present [phone] [address] [place] [address] Medicaid [id number] 2022 Medicaid [id number] 2008 Medicaid [facility] MEDIC AID [facility] MEDICAID [id number] 2008-Present [phone] [address] [place] [id number] Medicaid [id number] 2008 Medicaid [id number] Social History Date Type Detail Facility Start: 06-16-2016 End: 10-14-2022 Tobacco smoking status WAIS Never smoked tobacco [facility] Start: 11-05-2021 End: 03-28-2023 Alcohol intake Current drinker of alcohol (finding) [facility] Start: 06-16-2016 History SDOH Alcohol Comment occasionally-holidays [facility] Start: 1975 Sex Assigned At Not on file [facility] Start: 10-26-2021 End: 12-28-2021 Exposure to SARS-CoV-2 (event) Not sure [facility] Start: 06-16-2016 End: 10-14-2022 Tobacco use and exposure Smokeless tobacco non-user [facility] Work Phone: Start: 07-05-2020 End: 10-14-2022 History of Social function [facility] Start: 07-05-2020 End: 10-14-2022 Tobacco use panel [facility] Adult Depression Screening Assessment 1 [facility] Medical Equipment Procedure Code Equipment Code Equipment Origin al Text Equipment Identifier Dates Test blood sugar (s) 1 times daily. Dx: Type 2 DM - Controlled E11.9 Insulin: No Start: 07-01-2021 End: 10-05-2022 Clinical Notes 07-31-2012 to 06-17-2023 Telephone Encounter - Kiara Hickman RN - 06/17/2023 11:33 AM ESTAddendum Note - Jil Saez APRN.DIGITAL SALES MANAGER - 04/20/2023 5:10 PM EDTJil Saez APRN.[facility] - 04/20/2023 4:59 PM EDT Note Date & Type Note Facility 06-17-2023 Miscellaneous Notes Patient has been identified by name and date of : Yes, Provider Dr Crawford Date 06/17/23 Time 1136. Patient phones for refill(s): Requested Prescriptions Pending Prescriptions Disp Refills meclizine (ANTIVERT) 25 mg tab 60 tablet 1 Sig: Take 1 tablet by mouth three times a day as needed (dizziness). Date of last office visit in primary care: 04/20/2023 Date of next office visit in primary care: 10/25/2023 Last 2 Encounter Wt Readings: Date: Wt: 04/20/2023 83 kg (183 lb) 03/28/2023 79.4 kg (175 lb) Previous labs/tests for medication: Blood Pressure: BUN (mg/dL) Date Value 12/28/2021 18 12/09/2020 21 Sodium (mmol/L) Date Value 12/28/2021 140 12/09/2020 138 Last 1 Encounter BP Readings: Date: BP: 04/20/2023 130/80 Liver Function: ALT (U/L) Date Value 12/28/2021 28 12/09/2020 25 AST (U/L) Date Value 12/28/2021 29 12/09/2020 31 Please advise. Thank you. Kiara Hickman RN. documented in this encounter [facility] 05-13-2023 Note HNO ID: [id number] Author: Note, Interface Service: ? Author Type: ? Type: Progress Notes Filed: 05/13/2023 5:28 AM Note Text: Epic Scheduled Downtime: 05/13/2023 1:00:00 AM to 05/13/2023 1:28:00 AM [facility] 04-20-2023 Note HNO ID: [id number] Author: Jil Saez APRN.DIGITAL SALES MANAGER Service: ? Author Type: Nurse Practitioner Type: Progress Notes Filed: 04/20/2023 5:09 PM Note Text: Chief Complaint Patient presents with: 6 Month Exam HPI Ilda Cazares is a 48 year old female who presents here today for Above Complaints.. Patient presents for routine follow up for DM type II, HTN, HLD, Asthma. Patient reports she is doing well. Past medical history, appointments, medications, allergies reviewed. Previous Medical History PAST MEDICAL HISTORY Diagnosis Date Asthma due to environmental allergies 06/10/2021 Diabetic eye exam (HCC) 02/22/2021 Done 02/22/21 Elevated hemoglobin A1c 10/12/2017 Essential hypertension, benign High triglycerides 10/12/2017 History of gestational diabetes 10/21/2016 Hyperlipidemia, mixed 12/14/2020 Type 2 diabetes mellitus without complication, without long-term current use of insulin (HCC) 12/14/2020 Unspecified hearing loss, left ear 12/03/2020 Previous Surgical History PAST SURGICAL HISTORY Procedure Laterality Date EAR SURGERY HX 12/26/2019 PAST SURGICAL HISTORY OF cervical procedure for abnormal PAP TUBAL LIGATION HX Family History FAMILY HISTORY Problem Relation Age of Onset Hypertension Mother Diabetes Mother Hyperlipidemia Mother other (chf) Father Colon Polyps Father Colon Cancer Paternal Grandmother 80's Coronary Artery Disease Paternal Uncle 62 Patient Allergies ALLERGIES Allergen Reactions Latex Rash Adhesive Tape (Rossana* Rash Apricots [Other] Unknown Current Medications Current Outpatient Medications on File Prior to Visit Medication Sig amLODIPine (NORVASC) 5 mg tablet Take 1 tablet by mouth once daily. atorvastatin (LIPITOR) 10 mg tablet Take 1 tablet by mouth daily at bedtime. For cholesterol. metFORMIN (GLUCOPHAGE) 500 mg tablet Take 1 tablet by mouth daily with dinner. metoprolol tartrate, short acting, (LOPRESSOR) 100 mg tablet Take 1 tablet by mouth twice daily. hydroCHLOROthiazide 25 mg tablet Take 1 tablet by mouth once daily. lisinopril (ZESTRIL) 20 mg tablet Take 1 tablet by mouth once daily. meclizine (ANTIVERT) 25 mg tab Take 1 tablet by mouth three times daily as needed (dizziness). loratadine (CLARITIN) 10 mg tablet Take 1 tablet by mouth once daily. fluticasone (FLONASE) 50 mcg/actuation nasal spray Use 2 Sprays in each nostril once daily. Rinse mouth after use. blood sugar diagnostic (BLOOD GLUCOSE TEST) test strip Test blood sugar(s) 1 times daily. Dx: Type 2 DM - Controlled E11.9 Insulin: No Lancets lancets Test blood sugar(s) 1 times daily. Dx: Type 2 DM - Controlled E11.9 Insulin: No omega-3 fatty acids 1,000 mg cap Take 2 capsules by mouth once daily. multivitamin (ONE DAILY MULTIVITAMIN) tablet Take 1 tablet by mouth once daily. No current facility-administered medications on file prior to visit. Social History Social History Tobacco Use Smoking status: Never Smokeless tobacco: Never Vaping Use Vaping Use: Never used Substance Use Topics Alcohol use: Yes Comment: occasionally-holidays Drug use: No Review of Symptoms REVIEW OF SYSTEMS SEE HPI EXAM: BP 130/80 Pulse 84 Resp 14 Wt 83 kg (183 lb) LMP 03/20/2023 (Approximate) BMI 29.54 kg/m? General Appearance: Well appearing, alert, in no acute distress, well-hydrated, well nourished.. Skin: Skin color, texture, turgor normal, no suspicious rashes or lesions. Lungs: Lungs clear to auscultation. No wheezing, rhonchi, rales.. Heart: RRR without murmur, gallop, or rubs. No ectopy. Peripheral Pulses: Normal. Health Maintenance List Hepatitis B Vaccine(1 of 3 - 3-dose series) Never done Pneumococcal Vaccine(1 - PCV) Never done Spirometry Never done Hepatitis C Screening Never done BP Controlled (<130/80) Never done Mammogram Screening due on 01/13/2018 Colorectal Cancer Screening Never done Pap Testing due on 01/13/2022 HPV Testing due on 01/13/2022 Dilated Retinal Exam due on 02/22/2022 Diabetic Foot Exam due on 06/10/2022 Depression Assessment Never done Urine Albumin:Creatinine Ratio due on 12/28/2022 HbA1C due on 04/16/2023 Influenza Vaccine(1) due on 03/31/2023 Covid-19 Vaccine(1) due on 10/15/2023 LDL Cholesterol due on 10/15/2023 Annual PCP Team Chronic Disease Visit due on 10/15/2023 DTaP,Tdap,Td Vaccine(2 - Td or Tdap) due on 01/21/2025 HIV Screening Discontinued ASSESSMENT/PLAN: 1. High triglycerides - ICD9: 272.1, ICD10: E78.1 (primary diagnosis) - Control undetermined, due for labs - Continue current medications - Counseled on healthy diet and regular exercise 2. Essential hypertension, benign - ICD9: 401.1, ICD10: I10 - Controlled - Continue current medications - Recommend home blood pressure monitoring, to bring results to next visit - Encouraged sodium restriction, DASH or Mediterranean diet - Recommend regular aerobic exercise - Discussed need f (more content not included)... [facility] 04-20-2023 Miscellaneous Notes Addended by: JIL SAEZ on: 04/20/2023 05:10 PM Modules accepted: Orders documented in this encounter [facility] 04-20-2023 History of Present illness Narrative Chief Complaint Patient presents with: 6 Month Exam HPI Ilda Cazares is a 48 year old female who presents here today for Above Complaints.. Patient presents for routine follow up for DM type II, HTN, HLD, Asthma. Patient reports she is doing well. Past medical history, appointments, medications, allergies reviewed. Previous Medical History PAST MEDICAL HISTORY Diagnosis Date Asthma due to environmental allergies 06/10/2021 Diabetic eye exam (HCC) 02/22/2021 Done 02/22/21 Elevated hemoglobin A1c 10/12/2017 Essential hypertension, benign High triglycerides 10/12/2017 History of gestational diabetes 10/21/2016 Hyperlipidemia, mixed 12/14/2020 Type 2 diabetes mellitus without complication, without long-term current use of insulin (HCC) 12/14/2020 Unspecified hearing loss, left ear 12/03/2020 Previous Surgical History PAST SURGICAL HISTORY Procedure Laterality Date EAR SURGERY HX 12/26/2019 PAST SURGICAL HISTORY OF cervical procedure for abnormal PAP TUBAL LIGATION HX Family History FAMILY HISTORY Problem Relation Age of Onset Hypertension Mother Diabetes Mother Hyperlipidemia Mother other (chf) Father Colon Polyps Father Colon Cancer Paternal Grandmother 80's Coronary Artery Disease Paternal Uncle 62 Patient Allergies ALLERGIES Allergen Reactions Latex Rash Adhesive Tape (Rossana* Rash Apricots [Other] Unknown Current Medications Current Outpatient Medications on File Prior to Visit Medication Sig amLODIPine (NORVASC) 5 mg tablet Take 1 tablet by mouth once daily. atorvastatin (LIPITOR) 10 mg tablet Take 1 tablet by mouth daily at bedtime. For cholesterol. metFORMIN (GLUCOPHAGE) 500 mg tablet Take 1 tablet by mouth daily with dinner. metoprolol tartrate, short acting, (LOPRESSOR) 100 mg tablet Take 1 tablet by mouth twice daily. hydroCHLOROthiazide 25 mg tablet Take 1 tablet by mouth once daily. lisinopril (ZESTRIL) 20 mg tablet Take 1 tablet by mouth once daily. meclizine (ANTIVERT) 25 mg tab Take 1 tablet by mouth three times daily as needed (dizziness). loratadine (CLARITIN) 10 mg tablet Take 1 tablet by mouth once daily. fluticasone (FLONASE) 50 mcg/actuation nasal spray Use 2 Sprays in each nostril once daily. Rinse mouth after use. blood sugar diagnostic (BLOOD GLUCOSE TEST) test strip Test blood sugar(s) 1 times daily. Dx: Type 2 DM - Controlled E11.9 Insulin: No Lancets lancets Test blood sugar(s) 1 times daily. Dx: Type 2 DM - Controlled E11.9 Insulin: No omega-3 fatty acids 1,000 mg cap Take 2 capsules by mouth once daily. multivitamin (ONE DAILY MULTIVITAMIN) tablet Take 1 tablet by mouth once daily. No current facility-administered medications on file prior to visit. Social History Social History Tobacco Use Smoking status: Never Smokeless tobacco: Never Vaping Use Vaping Use: Never used Substance Use Topics Alcohol use: Yes Comment: occasionally-holidays Drug use: No Review of Symptoms REVIEW OF SYSTEMS SEE HPI EXAM: BP 130/80 Pulse 84 Resp 14 Wt 83 kg (183 lb) LMP 03/20/2023 (Approximate) BMI 29.54 kg/m General Appearance: Well appearing, alert, in no acute distress, well-hydrated, well nourished.. Skin: Skin color, texture, turgor normal, no suspicious rashes or lesions. Lungs: Lungs clear to auscultation. No wheezing, rhonchi, rales.. Heart: RRR without murmur, gallop, or rubs. No ectopy. Peripheral Pulses: Normal. Health Maintenance List Hepatitis B Vaccine(1 of 3 - 3-dose series) Never done Pneumococcal Vaccine(1 - PCV) Never done Spirometry Never done Hepatitis C Screening Never done BP Controlled (<130/80) Never done Mammogram Screening due on 01/13/2018 Colorectal Cancer Screening Never done Pap Testing due on 01/13/2022 HPV Testing due on 01/13/2022 Dilated Retinal Exam due on 02/22/2022 Diabetic Foot Exam due on 06/10/2022 Depression Assessment Never done Urine Albumin:Creatinine Ratio due on 12/28/2022 HbA1C due on 04/16/2023 Influenza Vaccine(1) due on 03/31/2023 Covid-19 Vaccine(1) due on 10/15/2023 LDL Cholesterol due on 10/15/2023 Annual PCP Team Chronic Disease Visit due on 10/15/2023 DTaP,Tdap,Td Vaccine(2 - Td or Tdap) due on 01/21/2025 HIV Screening Discontinued ASSESSMENT/PLAN: 1. High triglycerides - ICD9: 272.1, ICD10: E78.1 (primary diagnosis) - Control undetermined, due for labs - Continue current medications - Counseled on healthy diet and regular exercise 2. Essential hypertension, benign - ICD9: 401.1, ICD10: I10 - Controlled - Continue current medications - Recommend home blood pressure monitoring, to bring results to next visit - Encouraged sodium restriction, DASH or Mediterranean diet - Recommend regular aerobic exercise - Discussed need for and benefit of weight loss. BMI 29.54 kg/(m^2) - Reviewed risks of hypertension and principles of treatment 3. Type 2 diabetes mellitus without complication, without long-term current use of insulin (HCC) - ICD9: 250.00, ICD10: E11.9 - Control undetermined, due for labs - Continue current medications - Statin prescribed - atorvastatin - Blood glucose monitoring on a once daily schedule - Discussed need for and benefit of weight loss. BMI 29.54 kg/(m^2) 4. Hyperlipidemia, mixed - ICD9: 272.2, ICD10: E78.2 - Control undetermined, due for labs - Continue current medications - Counseled on healthy diet and regular exercise - Discussed need for and benefit of weight loss. BMI 29.54 kg/(m^2) 5. Asthma due to environmental allergies - ICD9: 493.90, ICD10: J45.909 - Mild intermittent asthma stable - Continue current medications - Avoidance of triggers recommended Jil Saez APRN.CNP documented in this encounter [facility] 02-27-2023 Miscellaneous Notes Last office visit: 10/14/22 F/u scheduled: 04/20/23 Dayna Lawrence Ma Patient has been identified by name and date of : Yes Requested Prescriptions Pending Prescriptions Disp Refills meclizine (ANTIVERT) 25 mg tab 60 tablet 1 Sig: Take 1 tablet by mouth three times daily as needed (dizziness). RX INSTRUCTIONS: Patient aware RX will be sent to pharmacy. No need to notify patient. Marcy Fournier documented in this encounter [facility] 10-26-2022 Miscellaneous Notes Mailed letter to patient. Mesha Conley MA Left additional message. Mesha Conley MA Left additional message for patient to contact office. Mesha Conley MA Left vm for patient to return call to nurse for provider message. Let patient know her CBC was ok. Her lipid panel showed Trigs elevated at 383 (goal<150), HDL low at 48 (goal>50), and LDL slightly elevated at 109 (goal<100). Advise patient to work on reduced fat in diet to help improve her Trigs and this can help improve A1c control. She also should work on increased exercise to help increase her HDL. If not improved will need to increase the lipitor to 20 mg a day A1c is ok at 6.8% since less than 7% but was much better at 6.8%. if not improved through diet and exercise will have to increase the metformin dosing. documented in this encounter [facility] 10-19-2022 Note Patient Outreach (IN [facility]) ILDA CAZARES ([id number]) 1975 F Date Time Provider Department 10/19/22 HAILEY CRAWFORD During your visit today, we recorded the following information about you: Allergies As of Date: 10/19/2022 Noted Allergy Reaction LATEX 03/25/2018 2 - Rash ADHESIVE TAPE (ROSINS) 06/16/2016 2 - Rash apricots [Other] 02/03/2006 16 - Unknown Date Reviewed: 10/14/2022 Reviewed by: Hailey Crawford MD - Fully Assessed Visit Diagnosis:Encounter for screening mammogram for breast cancer [Z12.31] Order(s):[facility] SCREENING [[id number]] Order #: [id number] FUTURE Prescriptions as of 10/24/2022 - amLODIPine (NORVASC) 5 mg tablet Take 1 tablet by mouth once daily. - atorvastatin (LIPITOR) 10 mg tablet Take 1 tablet by mouth daily at bedtime. For cholesterol. - hydroCHLOROthiazide (HYDRODIURIL, ESIDRIX) 25 mg tablet Take 1 tablet by mouth once daily. - lisinopril (ZESTRIL, PRINIVIL) 20 mg tablet Take 1 tablet by mouth once daily. - meclizine (ANTIVERT) 25 mg tab Take 1 tablet by mouth three times daily as needed (dizziness). - metFORMIN (GLUCOPHAGE) 500 mg tablet Take 1 tablet by mouth daily with dinner. - metoprolol tartrate, short acting, (LOPRESSOR) 100 mg tablet Take 1 tablet by mouth twice daily. - loratadine (CLARITIN) 10 mg tablet Take 1 tablet by mouth once daily. - fluticasone (FLONASE) 50 mcg/actuation nasal spray Use 2 Sprays in each nostril once daily. Rinse mouth after use. - blood sugar diagnostic (BLOOD GLUCOSE TEST) test strip Test blood sugar(s) 1 times daily. Dx: Type 2 DM - Controlled E11.9 Insulin: No - Lancets lancets Test blood sugar(s) 1 times daily. Dx: Type 2 DM - Controlled E11.9 Insulin: No - omega-3 fatty acids 1,000 mg cap Take 2 capsules by mouth once daily. - multivitamin (ONE DAILY MULTIVITAMIN) tablet Take 1 tablet by mouth once daily. Facility-Administered Medications as of 10/24/2022 - perflutren lipid microspheres 1.3 mL in NaCl (PF) 0.9% 10 mL injection (DEFINITY) - sodium chloride 0.9 % (flush) 10 mL (BD POSIFLUSH) Meds Comments as of 03/11/2012: On unknown blood pressure medicine - takes one twice a day and takes a water pill one every other day. Problem List As Of Date 10/19/2022 Noted Resolved Essential hypertension, benign [I10] 11/19/2008 Gestational HTN [O13.9] 07/31/2012 10/21/2016 History of gestational diabetes [Z86.32] 10/21/2016 Well adult exam [Z00.00] 10/21/2016 High triglycerides [E78.1] 10/12/2017 Unspecified hearing loss, left ear [H91.92] 12/03/2020 Type 2 diabetes mellitus without complication, *12/14/2020 Hyperlipidemia, mixed [E78.2] 12/14/2020 Diabetic eye exam (HCC) [Z01.00, E11.9] 02/22/2021 Asthma due to environmental allergies [J45.909] 06/10/2021 Stenosis of left carotid artery [I65.22] 09/21/2021 Encounter Status:Closed by [employer] PRODUSER on 10/24/22 [facility] 10-14-2022 Note HNO ID: [id number] Author: Hailey Crawford MD Service: ? Author Type: Physician Type: Progress Notes Filed: 10/14/2022 8:58 PM Note Text: Chief Complaint Patient presents with: F/U 6 months HPI Ilda Cazares is a 47 year old female who presents here today for 6 month follow up. Patient with hx of HTN, HLP, DM2, asthma and those as below. Patient has been doing well. Starting to work out at a gym. Past medical history, appointments, medications, allergies reviewed. Previous Medical History PAST MEDICAL HISTORY Diagnosis Date Asthma due to environmental allergies 06/10/2021 Diabetic eye exam (HCC) 02/22/2021 Done 02/22/21 Elevated hemoglobin A1c 10/12/2017 Essential hypertension, benign High triglycerides 10/12/2017 History of gestational diabetes 10/21/2016 Hyperlipidemia, mixed 12/14/2020 Type 2 diabetes mellitus without complication, without long-term current use of insulin (HCC) 12/14/2020 Unspecified hearing loss, left ear 12/03/2020 Previous Surgical History PAST SURGICAL HISTORY Procedure Laterality Date EAR SURGERY HX 12/26/2019 PAST SURGICAL HISTORY OF cervical procedure for abnormal PAP TUBAL LIGATION HX Family History FAMILY HISTORY Problem Relation Age of Onset Hypertension Mother Diabetes Mother Hyperlipidemia Mother other (chf) Father Colon Polyps Father Colon Cancer Paternal Grandmother 80's Coronary Artery Disease Paternal Uncle 62 Patient Allergies ALLERGIES Allergen Reactions Latex Rash Adhesive Tape (Rossana* Rash Apricots [Other] Unknown Current Medications Current Outpatient Medications on File Prior to Visit Medication Sig amLODIPine (NORVASC) 5 mg tablet Take 1 tablet by mouth once daily. atorvastatin (LIPITOR) 10 mg tablet Take 1 tablet by mouth daily at bedtime. For cholesterol. hydroCHLOROthiazide (HYDRODIURIL, ESIDRIX) 25 mg tablet Take 1 tablet by mouth once daily. lisinopril (ZESTRIL, PRINIVIL) 20 mg tablet Take 1 tablet by mouth once daily. meclizine (ANTIVERT) 25 mg tab Take 1 tablet by mouth three times daily as needed (dizziness). metFORMIN (GLUCOPHAGE) 500 mg tablet Take 1 tablet by mouth daily with dinner. metoprolol tartrate, short acting, (LOPRESSOR) 100 mg tablet Take 1 tablet by mouth twice daily. loratadine (CLARITIN) 10 mg tablet Take 1 tablet by mouth once daily. fluticasone (FLONASE) 50 mcg/actuation nasal spray Use 2 Sprays in each nostril once daily. Rinse mouth after use. blood sugar diagnostic (BLOOD GLUCOSE TEST) test strip Test blood sugar(s) 1 times daily. Dx: Type 2 DM - Controlled E11.9 Insulin: No Lancets lancets Test blood sugar(s) 1 times daily. Dx: Type 2 DM - Controlled E11.9 Insulin: No multivitamin (ONE DAILY MULTIVITAMIN) tablet Take 1 tablet by mouth once daily. omega-3 fatty acids 1,000 mg cap Take 2 capsules by mouth once daily. Current Facility-Administered Medications on File Prior to Visit Medication perflutren lipid microspheres 1.3 mL in NaCl (PF) 0.9% 10 mL injection (DEFINITY) sodium chloride 0.9 % (flush) 10 mL (BD POSIFLUSH) Social History Social History Tobacco Use Smoking status: Never Smokeless tobacco: Never Vaping Use Vaping Use: Never used Substance Use Topics Alcohol use: Yes Comment: occasionally-holidays Drug use: No Review of Symptoms REVIEW OF SYSTEMS GENERAL: No weight loss, malaise or fevers NECK: Negative for lumps, goiter, pain and significant neck swelling RESPIRATORY: Negative for cough, hemoptysis, wheezing, COPD, dyspnea or shortness of breath CARDIOVASCULAR: Negative for chest pain, leg swelling, hypertension, CHF or palpitations GI: No nausea, vomiting, or diarrhea and No heartburn or reflux symptoms : No history of dysuria, blood ENDOCRINE: Negative for symptoms of low BS's NEURO: No history of headaches, syncope, paralysis, seizures or tremors EXAM: BP 130/74 (BP Site: Left Arm, BP Position: Sitting, BP Cuff Size: Large Adult) Pulse 80 Resp 16 Wt 81.2 kg (179 lb) LMP 10/14/2022 (Approximate) BMI 28.89 kg/m? Last 4 Encounter Wt Readings: Date: Wt: 10/14/2022 81.2 kg (179 lb) 07/12/2022 72.6 kg (160 lb) 05/15/2022 70.3 kg (155 lb) 05/01/2022 72.6 kg (160 lb) General Appearance: Well appearing, alert, in no acute distress, well-hydrated, well nourished.. Eyes: Anicteric sclera. Pupils are equally round and reactive to light. Extraocular movements are intact. . Neck: Supple, no adenopathy; thyroid symmetric, normal size, no bruits. Lungs: Lungs clear to auscultation. No wheezing, rhonchi, rales.. Heart: RRR without murmur, gallop, or rubs. No ectopy. Abdomen: Normal abdominal exam, Abdomen soft, non-tender. Bowel sounds normal. No masses, organomegaly. Extremities: No deformities, edema, skin discoloration, Good capillary refill. . Peripheral Pulses: Normal. Neurologic: Gait normal. Sensation to light touch and crainal nerves 2-12 intact. Musc: str (more content not included)... [facility] 10-14-2022 Instructions Hailey Crawford MD - 10/14/2022 3:49 PM EDT Please get labs and urine test done on or after 03/31/2023 prior to your next visit. documented in this encounter [facility] 10-14-2022 History of Present illness Narrative Chief Complaint Patient presents with: F/U 6 months HPI Ilda Cazares is a 47 year old female who presents here today for 6 month follow up. Patient with hx of HTN, HLP, DM2, asthma and those as below. Patient has been doing well. Starting to work out at a gym. Past medical history, appointments, medications, allergies reviewed. Previous Medical History PAST MEDICAL HISTORY Diagnosis Date Asthma due to environmental allergies 06/10/2021 Diabetic eye exam (HCC) 02/22/2021 Done 02/22/21 Elevated hemoglobin A1c 10/12/2017 Essential hypertension, benign High triglycerides 10/12/2017 History of gestational diabetes 10/21/2016 Hyperlipidemia, mixed 12/14/2020 Type 2 diabetes mellitus without complication, without long-term current use of insulin ([facility]) 12/14/2020 Unspecified hearing loss, left ear 12/03/2020 Previous Surgical History PAST SURGICAL HISTORY Procedure Laterality Date EAR SURGERY HX 12/26/2019 PAST SURGICAL HISTORY OF cervical procedure for abnormal PAP TUBAL LIGATION HX Family History FAMILY HISTORY Problem Relation Age of Onset Hypertension Mother Diabetes Mother Hyperlipidemia Mother other (chf) Father Colon Polyps Father Colon Cancer Paternal Grandmother 80's Coronary Artery Disease Paternal Uncle 62 Patient Allergies ALLERGIES Allergen Reactions Latex Rash Adhesive Tape (Rossana* Rash Apricots [Other] Unknown Current Medications Current Outpatient Medications on File Prior to Visit Medication Sig amLODIPine (NORVASC) 5 mg tablet Take 1 tablet by mouth once daily. atorvastatin (LIPITOR) 10 mg tablet Take 1 tablet by mouth daily at bedtime. For cholesterol. hydroCHLOROthiazide (HYDRODIURIL, ESIDRIX) 25 mg tablet Take 1 tablet by mouth once daily. lisinopril (ZESTRIL, PRINIVIL) 20 mg tablet Take 1 tablet by mouth once daily. meclizine (ANTIVERT) 25 mg tab Take 1 tablet by mouth three times daily as needed (dizziness). metFORMIN (GLUCOPHAGE) 500 mg tablet Take 1 tablet by mouth daily with dinner. metoprolol tartrate, short acting, (LOPRESSOR) 100 mg tablet Take 1 tablet by mouth twice daily. loratadine (CLARITIN) 10 mg tablet Take 1 tablet by mouth once daily. fluticasone (FLONASE) 50 mcg/actuation nasal spray Use 2 Sprays in each nostril once daily. Rinse mouth after use. blood sugar diagnostic (BLOOD GLUCOSE TEST) test strip Test blood sugar(s) 1 times daily. Dx: Type 2 DM - Controlled E11.9 Insulin: No Lancets lancets Test blood sugar(s) 1 times daily. Dx: Type 2 DM - Controlled E11.9 Insulin: No multivitamin (ONE DAILY MULTIVITAMIN) tablet Take 1 tablet by mouth once daily. omega-3 fatty acids 1,000 mg cap Take 2 capsules by mouth once daily. Current Facility-Administered Medications on File Prior to Visit Medication perflutren lipid microspheres 1.3 mL in NaCl (PF) 0.9% 10 mL injection (DEFINITY) sodium chloride 0.9 % (flush) 10 mL (BD POSIFLUSH) Social History Social History Tobacco Use Smoking status: Never Smokeless tobacco: Never Vaping Use Vaping Use: Never used Substance Use Topics Alcohol use: Yes Comment: occasionally-holidays Drug use: No Review of Symptoms REVIEW OF SYSTEMS GENERAL: No weight loss, malaise or fevers NECK: Negative for lumps, goiter, pain and significant neck swelling RESPIRATORY: Negative for cough, hemoptysis, wheezing, COPD, dyspnea or shortness of breath CARDIOVASCULAR: Negative for chest pain, leg swelling, hypertension, CHF or palpitations GI: No nausea, vomiting, or diarrhea and No heartburn or reflux symptoms : No history of dysuria, blood ENDOCRINE: Negative for symptoms of low BS's NEURO: No history of headaches, syncope, paralysis, seizures or tremors EXAM: BP 130/74 (BP Site: Left Arm, BP Position: Sitting, BP Cuff Size: Large Adult) Pulse 80 Resp 16 Wt 81.2 kg (179 lb) LMP 10/14/2022 (Approximate) BMI 28.89 kg/m Last 4 Encounter Wt Readings: Date: Wt: 10/14/2022 81.2 kg (179 lb) 07/12/2022 72.6 kg (160 lb) 05/15/2022 70.3 kg (155 lb) 05/01/2022 72.6 kg (160 lb) General Appearance: Well appearing, alert, in no acute distress, well-hydrated, well nourished.. Eyes: Anicteric sclera. Pupils are equally round and reactive to light. Extraocular movements are intact. . Neck: Supple, no adenopathy; thyroid symmetric, normal size, no bruits. Lungs: Lungs clear to auscultation. No wheezing, rhonchi, rales.. Heart: RRR without murmur, gallop, or rubs. No ectopy. Abdomen: Normal abdominal exam, Abdomen soft, non-tender. Bowel sounds normal. No masses, organomegaly. Extremities: No deformities, edema, skin discoloration, Good capillary refill. . Peripheral Pulses: Normal. Neurologic: Gait normal. Sensation to light touch and crainal nerves 2-12 intact. Musc: strength normal. . Health Maintenance List HEPATITIS B(1 of 3 - 3-dose series) Never done COVID-19 VACCINE(1) Never done PNEUMOCOCCAL(1 - PCV) Never done SPIROMETRY Never done HEPATITIS C SCREENING Never done MAMMOGRAM due on 01/13/2018 COLORECTAL CANCER SCREENING Never done PAP TESTING due on 01/13/2022 HPV TESTING due on 01/13/2022 DILATED RETINAL EXAM due on 02/22/2022 INFLUENZA(1) due on 03/31/2022 DIABETIC FOOT EXAM due on 06/10/2022 HBA1C due on 06/29/2022 DEPRESSION ASSESSMENT Never done URINE ALBUMIN:CREATININE RATIO due on 12/28/2022 LDL CHOLESTEROL due on 12/28/2022 ANNUAL PCP TEAM CHRONIC DISEASE VISIT due on 12/28/2022 BP CONTROLLED (<130/80) due on 12/28/2022 DTAP,TDAP,TD(2 - Td or Tdap) due on 01/21/2025 HIV SCREENING Discontinued Data reviewed A/P ASSESSMENT/PLAN: 1. Type 2 diabetes mellitus without complication, without long-term current use of insulin (HCC) - ICD9: 250.00, ICD10: E11.9 (primary diagnosis) Will await labs to see if any changes needed. - Continue current medications - Counseled on healthy diet and regular exercise - HGB A1C - LIPID PANEL, NONFASTING - CBC + DIFF 2. Essential hypertension, benign - ICD9: 401.1, ICD10: I10 - good control - Continue current medication(s) - Recommended regular aerobic exercise. - Recommend home blood pressure monitoring, to bring results in on next visit - Goal of BP <130/80 - LIPID PANEL, NONFASTING 3. Diabetic eye exam (HCC) - ICD9: V72.0, 250.00, ICD10: Z01.00, E11.9 - consult to Optho 4. Hyperlipidemia, mixed - ICD9: 272.2, ICD10: E78.2 - to be determined upon return of lab results - Continue current medication. 5. Asthma due to environmental allergies - ICD9: 493.90, ICD10: J45.909 Mild intermittent Asthma stable - Avoidance of triggers recommended F/u in 6 months WAE check CMP, Lipid, Ua, urine Micro albumin, CBC and A1c prior Hailey Crawford MD documented in this encounter [facility] 10-05-2022 Miscellaneous Notes The following approved medication requests have been transmitted electronically. Requested Prescriptions Signed Prescriptions Disp Refills amLODIPine (NORVASC) 5 mg tablet 30 tablet 5 Sig: Take 1 tablet by mouth once daily. Authorizing Provider: HAILEY CRAWFORD atorvastatin (LIPITOR) 10 mg tablet 30 tablet 5 Sig: Take 1 tablet by mouth daily at bedtime. For cholesterol. Authorizing Provider: HAILEY CRAWFORD hydroCHLOROthiazide (HYDRODIURIL, ESIDRIX) 25 mg tablet 30 tablet 5 Sig: Take 1 tablet by mouth once daily. Authorizing Provider: HAILEY CRAWFORD lisinopril (ZESTRIL, PRINIVIL) 20 mg tablet 30 tablet 5 Sig: Take 1 tablet by mouth once daily. Authorizing Provider: HAILEY CRAWFORD meclizine (ANTIVERT) 25 mg tab 60 tablet 1 Sig: Take 1 tablet by mouth three times daily as needed (dizziness). Authorizing Provider: HAILEY CRAWFORD metFORMIN (GLUCOPHAGE) 500 mg tablet 30 tablet 5 Sig: Take 1 tablet by mouth daily with dinner. Authorizing Provider: HAILEY CRAWFORD metoprolol tartrate, short acting, (LOPRESSOR) 100 mg tablet 60 tablet 5 Sig: Take 1 tablet by mouth twice daily. Authorizing Provider: HAILEY CRAWFORD loratadine (CLARITIN) 10 mg tablet 30 tablet 5 Sig: Take 1 tablet by mouth once daily. Authorizing Provider: HAILEY CRAWFORD fluticasone (FLONASE) 50 mcg/actuation nasal spray 1 Each 5 Sig: Use 2 Sprays in each nostril once daily. Rinse mouth after use. Authorizing Provider: HAILEY CRAWFORD blood sugar diagnostic (BLOOD GLUCOSE TEST) test strip 50 Strip 11 Sig: Test blood sugar(s) 1 times daily. Dx: Type 2 DM - Controlled E11.9 Insulin: No Authorizing Provider: HAILEY CRAWFORD Lancets lancets 100 Each 11 Sig: Test blood sugar(s) 1 times daily. Dx: Type 2 DM - Controlled E11.9 Insulin: No Authorizing Provider: HAILEY CRAWFORD MD [facility] 09/14/2021 NOV 10/14/2022 Dianna Camejo MA Patient has been identified by name and date of : Yes, Provider TY Patient phones for refill(s): Requested Prescriptions Pending Prescriptions Disp Refills amLODIPine (NORVASC) 5 mg tablet 30 tablet 5 Sig: Take 1 tablet by mouth once daily. atorvastatin (LIPITOR) 10 mg tablet 30 tablet 5 Sig: Take 1 tablet by mouth daily at bedtime. For cholesterol. hydroCHLOROthiazide (HYDRODIURIL, ESIDRIX) 25 mg tablet 30 tablet 5 Sig: Take 1 tablet by mouth once daily. lisinopril (ZESTRIL, PRINIVIL) 20 mg tablet 30 tablet 5 Sig: Take 1 tablet by mouth once daily. meclizine (ANTIVERT) 25 mg tab 60 tablet 1 Sig: Take 1 tablet by mouth three times daily as needed (dizziness). metFORMIN (GLUCOPHAGE) 500 mg tablet Sig: Take 1 tablet by mouth daily with dinner. metoprolol tartrate, short acting, (LOPRESSOR) 100 mg tablet 60 tablet 5 Sig: Take 1 tablet by mouth twice daily. loratadine (CLARITIN) 10 mg tablet 30 tablet 5 Sig: Take 1 tablet by mouth once daily. fluticasone (FLONASE) 50 mcg/actuation nasal spray 1 Each 5 Sig: Use 2 Sprays in each nostril once daily. Rinse mouth after use. blood sugar diagnostic (BLOOD GLUCOSE TEST) test strip 50 Strip 11 Sig: Test blood sugar(s) 1 times daily. Dx: Type 2 DM - Controlled E11.9 Insulin: No Lancets lancets 100 Each 11 Sig: Test blood sugar(s) 1 times daily. Dx: Type 2 DM - Controlled E11.9 Insulin: No Date of last office visit in primary care: 12/28/21 Date of next office visit in primary care: 10/14/22 Last 2 Encounter Wt Readings: Date: Wt: 07/12/2022 72.6 kg (160 lb) 05/15/2022 70.3 kg (155 lb) Previous labs/tests for medication: Not applicable Please advise. Thank you. Tatyana Michel' documented in this encounter [facility] 12-29-2021 Miscellaneous Notes Patient notified of results and provider's instructions. Patient verbalizes understanding. Pt will repeat labs in 1 month. Lilliana Whipple LPN Let patient know that we have definitely seen improvement in her labs. Her trigs are still a little high, so I want to keep her on the lipitor. But her total cholesterol and LDL are great. ldl at 67 and was previously at 141. So this is very good. (goal is under 100). Her a1c is down to 5.9 from 6.8. I think we could go down to metformin just once a day and see how she does on that dose. Her platelet count is mildly elevated. Let's just recheck this in 1 month. thanks Sabrina Demarco PA-C documented in this encounter [facility] 12-28-2021 Instructions Sabrina Demarco PA-C - 12/28/2021 12:54 PM EDT Please let us know when you are ready to pursue colon cancer screening. Please set up your Mammogram and RADIO TELEVISION TECHNICAL DIRECTOR visit. documented in this encounter [facility] 12-28-2021 History of Present illness Narrative Chief Complaint Patient presents with: Physical HPI Ilda Cazares is a 46 year old female who presents here today for physical. Patient with hx of HTN, HLP, DM2, asthma and those as below. Patient has been working on weight loss. Has a f/u with cardiology next month given patient's syncopal episodes. otherwise doing well. Last 10 Encounter Wt Readings: Date: Wt: 12/28/2021 75.3 kg (166 lb) 11/05/2021 74.8 kg (165 lb) 09/14/2021 78.9 kg (174 lb) 09/10/2021 77.6 kg (171 lb) 07/01/2021 80.3 kg (177 lb) 06/10/2021 85.3 kg (188 lb) Past medical history, appointments, medications, allergies reviewed. Previous Medical History PAST MEDICAL HISTORY Diagnosis Date Asthma due to environmental allergies 06/10/2021 Diabetic eye exam (HCC) 02/22/2021 Done 02/22/21 Elevated hemoglobin A1c 10/12/2017 Essential hypertension, benign High triglycerides 10/12/2017 History of gestational diabetes 10/21/2016 Hyperlipidemia, mixed 12/14/2020 Type 2 diabetes mellitus without complication, without long-term current use of insulin (HCC) 12/14/2020 Unspecified hearing loss, left ear 12/03/2020 Previous Surgical History PAST SURGICAL HISTORY Procedure Laterality Date EAR SURGERY HX 12/26/2019 PAST SURGICAL HISTORY OF cervical procedure for abnormal PAP TUBAL LIGATION HX Family History FAMILY HISTORY Problem Relation Age of Onset Hypertension Mother Diabetes Mother Hyperlipidemia Mother other (chf) Father Colon Polyps Father Colon Cancer Paternal Grandmother 80's Coronary Artery Disease Paternal Uncle 62 Patient Allergies ALLERGIES Allergen Reactions Latex Rash Adhesive Tape (Rossana* Rash Apricots [Other] Unknown Current Medications Current Outpatient Medications on File Prior to Visit Medication Sig meclizine (ANTIVERT) 25 mg tab Take 1 tablet by mouth three times daily as needed (dizziness). Lancets lancets Test blood sugar(s) 1 times daily. Dx: Type 2 DM - Controlled E11.9 Insulin: No blood sugar diagnostic (BLOOD GLUCOSE TEST) test strip Test blood sugar(s) 1 times daily. Dx: Type 2 DM - Controlled E11.9 Insulin: No atorvastatin (LIPITOR) 10 mg tablet Take 1 tablet by mouth daily at bedtime. For cholesterol. lisinopril (ZESTRIL, PRINIVIL) 20 mg tablet Take 1 tablet by mouth once daily. hydroCHLOROthiazide (HYDRODIURIL, ESIDRIX) 25 mg tablet Take 1 tablet by mouth once daily. amLODIPine (NORVASC) 5 mg tablet Take 1 tablet by mouth once daily. metoprolol tartrate, short acting, (LOPRESSOR) 100 mg tablet Take 1 tablet by mouth twice daily. metFORMIN (GLUCOPHAGE) 500 mg tablet Take 1 tablet by mouth twice daily with meals. loratadine (CLARITIN) 10 mg tablet Take 1 tablet by mouth once daily. fluticasone (FLONASE) 50 mcg/actuation nasal spray Use 2 Sprays in each nostril once daily. Rinse mouth after use. multivitamin (ONE DAILY MULTIVITAMIN) tablet Take 1 tablet by mouth once daily. omega-3 fatty acids 1,000 mg cap Take 2 capsules by mouth once daily. Current Facility-Administered Medications on File Prior to Visit Medication perflutren lipid microspheres 1.3 mL in NaCl (PF) 0.9% 10 mL injection (DEFINITY) sodium chloride 0.9 % (flush) 10 mL (BD POSIFLUSH) Social History Social History Tobacco Use Smoking status: Never Smoker Smokeless tobacco: Never Used Vaping Use Vaping Use: Never used Substance Use Topics Alcohol use: Yes Comment: occasionally-holidays Drug use: No Review of Symptoms REVIEW OF SYSTEMS GENERAL: No abnormal weight loss, malaise or fevers HEENT: No changes in hearing or vision, no nose bleeds or other nasal problems NECK: Negative for lumps, goiter, pain and significant neck swelling RESPIRATORY: Negative for cough, hemoptysis, wheezing, COPD, dyspnea or shortness of breath CARDIOVASCULAR: Negative for chest pain, leg swelling, CHF or palpitations GI: Negative for abdominal discomfort, blood in stools or black stools, change in bowel habit, heart burn, nausea, vomiting : No history of dysuria, frequency or incontinence MUSCULOSKELETAL: Negative for joint pain or swelling, back pain or muscle pain SKIN: Negative for lesions, rash, and itching PSYCH: Negative for sleep disturbance, mood disorder and recent psychosocial stressors HEMATOLOGY/LYMPHOLOGY: Negative for prolonged bleeding, bruising easily or swollen nodes ENDOCRINE: Negative for cold or heat intolerance, polyuria, polydipsia and goiter NEURO: No history of headaches, syncope, paralysis, seizures or tremors EXAM: BP 124/74 (BP Site: Left Arm, BP Position: Sitting, BP Cuff Size: Large Adult) Pulse 68 Temp 37.4 C (99.4 F) Resp 18 Wt 75.3 kg (166 lb) LMP 05/09/2019 (Approximate) BMI 26.79 kg/m General Appearance: Well appearing, alert, in no acute distress, well-hydrated, well nourished.. Skin: Skin color, texture, turgor normal, no suspicious rashes or lesions. Head: Normocephalic, no masses, lesions, tenderness or abnormalities. Eyes: Anicteric sclera. Pupils are equally round and reactive to light. Extraocular movements are intact. . Ears: External ears normal, canals clear. Nose/Sinuses: deferred- mask. Oropharynx: deferred- mask. Neck: Supple, no adenopathy; thyroid symmetric, normal size, no bruits. Lungs: Lungs clear to auscultation. No wheezing, rhonchi, rales.. Heart: RRR without murmur, gallop, or rubs. No ectopy. Abdomen: Normal abdominal exam, Abdomen soft, non-tender. Bowel sounds normal. No masses, organomegaly. Extremities: No deformities, edema, skin discoloration, clubbing or cyanosis. Good capillary refill. . Peripheral Pulses: Normal. Neurologic: Gait normal. Reflexes normal and symmetric. Sensation grossly intact.. Health Maintenance List PNEUMOCOCCAL(1 - PCV) Never done URINE ALBUMIN:CREATININE RATIO Never done SPIROMETRY Never done HEPATITIS C SCREENING Never done BP CONTROLLED (<130/80) Never done HEPATITIS B(1 of 3 - Risk 3-dose series) Never done MAMMOGRAM due on 01/13/2018 COLORECTAL CANCER SCREENING Never done HBA1C due on 06/11/2021 LDL CHOLESTEROL due on 12/09/2021 PAP TESTING due on 01/13/2022 HPV TESTING due on 01/13/2022 COVID-19 VACCINE(1) due on 06/10/2022 DILATED RETINAL EXAM due on 02/22/2022 INFLUENZA(Season Ended) due on 03/31/2022 DIABETIC FOOT EXAM due on 06/10/2022 ANNUAL PCP TEAM CHRONIC DISEASE VISIT due on 09/14/2022 DEPRESSION SCREENING due on 12/28/2022 DTAP,TDAP,TD(2 - Td or Tdap) due on 01/21/2025 HIV SCREENING Discontinued Data reviewed N/a ASSESSMENT/PLAN: 1. Well adult exam - ICD9: V70.0, ICD10: Z00.00 (primary diagnosis) - Counseled on healthy diet and regular exercise - Calcium intake with supplements or by diet of 1000 mg/day for under 50, 1750-2187 mg/day for 50+ Discussed colon cancer screening- she is considering. - CONSULT TO GYNECOLOGY 2. Essential hypertension, benign - ICD9: 401.1, ICD10: I10 - good control - Continue current medication(s) - Recommended regular aerobic exercise. - Recommend home blood pressure monitoring, to bring results in on next visit - Goal of BP <130/80 - LISINOPRIL 20 MG TABLET - HYDROCHLOROTHIAZIDE 25 MG TABLET - AMLODIPINE 5 MG TABLET - METOPROLOL TARTRATE 100 MG TABLET 3. High triglycerides - ICD9: 272.1, ICD10: E78.1 - to be determined upon return of lab results - Encouraged following a low carbohydrate, healthy oil intake diet. - Continue current therapy. - METFORMIN 500 MG TABLET 4. Type 2 diabetes mellitus without complication, without long-term current use of insulin (HCC) - ICD9: 250.00, ICD10: E11.9 Await lab results - Continue current medications - BP goal of <130/80 - LDL goal of <100 5. Hyperlipidemia, mixed - ICD9: 272.2, ICD10: E78.2 As #3 6. Asthma due to environmental allergies - ICD9: 493.90, ICD10: J45.909 stable - Avoidance of triggers recommended Sabrina Demarco PA-C documented in this encounter [facility] documented as of this encounter (statuses as of 11/15/2021) [facility] History of Past illness Narrative* Problem Noted Date Resolved Date Gestational HTN 07/31/2012 10/21/2016 documented as of this encounter (statuses as of 12/28/2021) [facility] History of Past illness Narrative* Problem Noted Date Resolved Date Gestational HTN 07/31/2012 10/21/2016 documented as of this encounter (statuses as of 12/29/2021) [address]01-2013 History of Past illness Narrative* Problem Noted Date Resolved Date Gestational HTN 07/31/2012 10/21/2016 documented as of this encounter (statuses as of 10/06/2022) [place] [id number] History of Past illness Narrative* Problem Noted Date Resolved Date Gestational HTN 07/31/2012 10/21/2016 documented as of this encounter (statuses as of 10/15/2022) [facility] History of Past illness Narrative* Problem Noted Date Resolved Date Gestational HTN 07/31/2012 10/21/2016 documented as of this encounter (statuses as of 10/24/2022) [facility] History of Past illness Narrative* Problem Noted Date Resolved Date Gestational HTN 07/31/2012 10/21/2016 documented as of this encounter (statuses as of 10/26/2022) [facility] History of Past illness Narrative* Problem Noted Date Diagnosed Date Resolved Date Gestational HTN 07/31/2012 10/21/2016 documented as of this encounter (statuses as of 02/27/2023) [facility] History of Past illness Narrative* Problem Noted Date Diagnosed Date Resolved Date Gestational HTN 07/31/2012 10/21/2016 documented as of this encounter (statuses as of 04/21/2023) [place] [address]-01-2013 History of Past illness Narrative* Problem Noted Date Diagnosed Date Resolved Date Gestational HTN 07/31/2012 10/21/2016 documented as of this encounter (statuses as of 06/19/2023) [facility] Diagnosis Encounter for screening mammogram for breast cancer [facility] Diagnosis Well adult exam- Primary Routine general medical examination at a health care facility Essential hypertension, benign High triglycerides Pure hyperglyceridemia Type 2 diabetes mellitus without complication, without long-term current use of insulin (HCC) Hyperlipidemia, mixed Mixed hyperlipidemia Asthma due to environmental allergies [facility] Diagnosis High platelet count- Primary Essential thrombocythemia High triglycerides Pure hyperglyceridemia [facility] Diagnosis Essential hypertension, benign High triglycerides Pure hyperglyceridemia [facility] Diagnosis Type 2 diabetes mellitus without complication, without long-term current use of insulin (HCC)- Primary Essential hypertension, benign Diabetic eye exam (HCC) Type II or unspecified type diabetes mellitus without mention of complication, not stated as uncontrolled Hyperlipidemia, mixed Mixed hyperlipidemia Asthma due to environmental allergies [facility] Diagnosis Encounter for screening mammogram for breast cancer documented in this encounter [facility] note* Diagnosis High triglycerides- Primary Pure hyperglyceridemia Essential hypertension, benign Type 2 diabetes mellitus without complication, without long-term current use of insulin (HCC) Hyperlipidemia, mixed Mixed hyperlipidemia Asthma due to environmental allergies documented in this encounter [facility] for referral (narrative)* Diagnostic Procedure Only (Routine) - Pending Review Specialty Diagnoses / Procedures Referred By Buck mahoney Referred To Contact [facility] Diagnoses Encounter for screening mammogram for breast cancer Procedures VIKI SCREENING SCREENING MAMMOGRAPHY BI 2-VIEW BREAST INC CAD Hialey Crawford MD [address] [place] [address] [facility] [address] [place] [address] Referral ID Status Reason Start Date Expiration Date Visits Requested Visits Authorized [id number] Pending Review Auto-Generat ed Referral 11/10/2021 12/10/2022 1 1 T [facility] for referral (narrative)* Diagnostic Procedure Only (Routine) - Pending Review Specialty Diagnoses / Procedures Referred By Buck mahoney Referred To Contact [facility] Diagnoses Encounter for screening mammogram for breast cancer Procedures VIKI SCREENING SCREENING MAMMOGRAPHY BI 2-VIEW BREAST INC CAD Hailey Crawford MD [address] [place] [address] [facility] [address] [address] Referral ID Status Reason Start Date Expiration Date Visits Requested Visits Authorized [id number] Pending Review Auto-Generat ed Referral 10/19/2022 11/18/2023 1 1 T [facility] Summary Purpose Family History No Family History Records FoundNo Family History Records FoundNo Family History Records Found Advance Directives Documents on File Type Date Recorded Patient Superintendent Transportation Expl anation Advance Directive(s) 11/05/2021 12:12 PM Advance Directive(s) 09/10/2021 9:47 PM Advance Directive(s) 04/11/2021 5:16 PM Advance Directive(s) 03/30/2021 10:22 AM Advance Directive(s) 11/30/2017 9:57 AM Documents on File Type Date Recorded Patient Superintendent Transportation Expl anation Advance Directive(s) 11/05/2021 12:12 PM Advance Directive(s) 09/10/2021 9:47 PM Advance Directive(s) 04/11/2021 5:16 PM Advance Directive(s) 03/30/2021 10:22 AM Advance Directive(s) 11/30/2017 9:57 AM Reason for Referral Specialty Diagnoses / Procedures Referred By Contnitish t Referred To Contact Gynecology Diagnoses Well adult exam Procedures CONSULT TO GYNECOLOGY OFFICE/OUTPATIENT [facility] MDM 60-74 MINUTES Sabrina eDmarco PA-C [address] [place] [address] Referral ID Status Reason Start Date Expiration Date Visits Requested Visits Authorized [id number] Authorized PCP Requested Referral Auto-Generate d Referral 12/28/2021 12/28/2022 1 1 Specialty Diagnoses / Procedures Referred By Contac t Referred To Contact Ophthalmology Diagnoses Type 2 diabetes mellitus without complication, without long-term current use of insulin (HCC) Procedures CONSULT TO OPHTHALMOLOGY OFFICE/OUTPATIENT [facility] MDM 60-74 MINUTES Hailey Crawford MD [address] [place] [address] Referral ID Status Reason Start Date Expiration Date Visits Requested Visits Authorized [id number] Authorized PCP Requested Referral 10/14/2022 10/14/2023 1 1 Additional Source Comments INFORMATION SOURCE (unrecogn ized section and content) DATE CREATED AUTHOR AUTHOR'S ORGANIZ ATION 04/24/2023 [facility] DATE CREATED AUTHOR AUTHOR'S ORGANIZ ATION 05/14/2023 [facility] Source Comments (unrecognize d section and content) In the event this informatio n is protected by the Federal Confidentiality of Alcohol and Drug Abuse Patient Records regulations: The Federal rules restrict any use of the information to criminally investigate or prosecute any alcohol or drug abuse patient.[facility] the event this information is protected by the Federal Confidentiality of Alcohol and Drug Abuse Patient Records regulations: The Federal rules restrict any use of the information to criminally investigate or prosecute any alcohol or drug abuse patient.[facility] the event this information is protected by the Federal Confidentiality of Alcohol and Drug Abuse Patient Records regulations: The Federal rules restrict any use of the information to criminally investigate or prosecute any alcohol or drug abuse patient.[facility] the event this information is protected by the Federal Confidentiality of Alcohol and Drug Abuse Patient Records regulations: The Federal rules restrict any use of the information to criminally investigate or prosecute any alcohol or drug abuse patient.[facility] the event this information is protected by the Federal Confidentiality of Alcohol and Drug Abuse Patient Records regulations: The Federal rules restrict any use of the information to criminally investigate or prosecute any alcohol or drug abuse patient.[facility] the event this information is protected by the Federal Confidentiality of Alcohol and Drug Abuse Patient Records regulations: The Federal rules restrict any use of the information to criminally investigate or prosecute any alcohol or drug abuse patient.[facility] the event this information is protected by the Federal Confidentiality of Alcohol and Drug Abuse Patient Records regulations: The Federal rules restrict any use of the information to criminally investigate or prosecute any alcohol or drug abuse patient.[facility] the event this information is protected by the Federal Confidentiality of Alcohol and Drug Abuse Patient Records regulations: The Federal rules restrict any use of the information to criminally investigate or prosecute any alcohol or drug abuse patient.[facility] the event this information is protected by the Federal Confidentiality of Alcohol and Drug Abuse Patient Records regulations: The Federal rules restrict any use of the information to criminally investigate or prosecute any alcohol or drug abuse patient.[facility] the event this information is protected by the Federal Confidentiality of Alcohol and Drug Abuse Patient Records regulations: The Federal rules restrict any use of the information to criminally investigate or prosecute any alcohol or drug abuse patient.[facility] Care Teams (unrecognized sec tion and content) Experience Designer Relationship Specialty Start Date End Date Hailey Crawford MD [address] [place] [address] PCP - General Family Practice 10/21/16 Experience Designer Relationship Specialty Start Date End Date Hailey Crawford MD [facility] [place] [address] PCP - General Family Practice 10/21/16 Experience Designer Relationship Specialty Start Date End Date Hailey Crawford MD [address] [place] [id number] PCP - General Family Medicine 10/21/16 Experience Designer Relationship Specialty Start Date End Date Hailey Crawford MD [address] [place] [address] PCP - General Family Medicine 10/21/16 Experience Designer Relationship Specialty Start Date End Date Hailey Crawford MD [address] [place], [place] [address] PCP - General Family Medicine 10/21/16 Experience Designer Relationship Specialty Start Date End Date Hailey Crawford MD [address] [place], [place] [address] PCP - General Family Medicine 10/21/16 Experience Designer Relationship Specialty Start Date End Date Hailey Crawford MD [address] [place], [place] [id number] PCP - General Family Medicine 10/21/16 Experience Designer Relationship Specialty Start Date End Date Hailey Crawford MD [address] [place] [address] PCP - General Family Medicine 10/21/16 Experience Designer Relationship Specialty Start Date End Date Hailey Crawford MD [address] [place], [place] [address] PCP - General Family Medicine 10/21/16 Reason for Visit (unrecogniz ed section and content) Reason Comments Results Reason Onset Date Comments Refill Request 10/05/2022 Reason Comments F/U 6 months Reason Onset Date Comments Refill Request 02/27/2023 Reason Comments 6 Month Exam Reason Onset Date Comments Refill Request 06/17/2023 FOR RECORDS PERTAINING TO PATIENTS WHO ARE OR HAVE BEEN ENROLLED IN A CHEMICAL DEPENDENCY/SUBSTANCEABUSE PROGRAM, SOME INFORMATION MAY BE OMITTED. This clinical summary was aggregated from multiple sources. Caution should be exercised in using it in the provision of clinical care. This summary normalizes information from multiple sources, and as a consequence, information in this document may materially change the coding, format and clinical context of patient data. In addition, data may be omitted in some cases. CLINICAL DECISIONS SHOULD BE BASED ON THE PRIMARY CLINICAL RECORDS. [facility]. provides no warranty or guarantee of the accuracy or completeness of information in this document.
== END | disposition home or self-care (01) ==
LOC: LABSPEC 12:03
PROVIDERS: PCP Family Medicine; Referring Provider Physician Assistant Surgical; Visit Provider Physician Assistant Surgical
DX: R30.0 Dysuria (principal)
CPT/HCPCS: 81001; 87077; 87086; 87088; 87186